=== PATIENT | male | born 1950 | race Caucasian/White ===

== ENCOUNTER → 2020-03-13 17:31 | Outpatient (BNVA) | payer MEDICARE, MEDICAID, SELFPAY | PROVIDERS: Family Provider Internal Medicine; PCP Internal Medicine; Visit Provider Nurse Practitioner Family | DX: R53.83 Other fatigue (principal); M25.50 Pain in unspecified joint; Z12.5 Encounter for screening for malignant neoplasm of prostate; E55.9 Vitamin D deficiency, unspecified; J02.9 Acute pharyngitis, unspecified; R10.32 Left lower quadrant pain | CPT/HCPCS: 80053; 82306; 82607; 84443; 84550; 85025; 85651; 86140; 86618; 86666; 86757; G0103 ==

== ENCOUNTER → 2020-03-26 15:29 | Outpatient (BNVA) | payer MEDICARE, MEDICAID, SELFPAY | PROVIDERS: Family Provider Internal Medicine; PCP Internal Medicine; Visit Provider Nurse Practitioner Family | DX: M25.50 Pain in unspecified joint (principal) | CPT/HCPCS: 86038; 86431 ==

== ENCOUNTER → 2020-05-19 15:58 | Outpatient (BNVA) | payer MEDICARE, MEDICAID, SELFPAY | PROVIDERS: Family Provider Internal Medicine; PCP Internal Medicine; Visit Provider Nurse Practitioner Family | DX: M54.9 Dorsalgia, unspecified (principal); M54.2 Cervicalgia | CPT/HCPCS: 72040; 72072; 72100 ==

== ENCOUNTER 2020-05-26 11:58 | Outpatient (CLI) | payer MEDICARE, MEDICAID, SELFPAY ==
[2020-05-26] MEDS: iohexol 300 mg/mL 50 mL Btl PO (12:50)
--- NOTE | 2020-05-26 13:30 | CT_ITS ---
WS: [id number] CT ABDOMEN PELVIS TECHNIQUE: Contrast-enhanced CT of the abdomen and pelvis with coronal and sagittal reformatted image s. CLINICAL INFORMATION: abdominal pain COMPARISON: CT 2018 and 2017 DLP: 1170.[address] scans at [facility] use at least one of these dose optimization techniques: automat ed exposure control; mA and/or kV adjustment per patient size (includes targeted exams where dose is matched to clinical indication); or iterative reconstruction. FINDINGS: Mild diffuse fatty infiltration liver. Normal portal vein and splenic vein. Normal GE junction. Fatty atrophy of the pancreas. Normal spleen. Adrenal glands are normal. Normal renal parenchymal enhancem ent. No hydronephrosis. Lung bases are well aerated. Sigmoid diverticulosis. No evidence of acute diverticulitis. No evidence of small or large bowel obst ruction. Fat-containing left inguinal hernia. Small fat-containing umbilical hernia. Normal visualize d lumbar spine. CT/CT abdomen pelvis w con* [id number] IMPRESSION: 1. Mild diffuse fatty infiltration of the liver. 2. Normal visualized gallbladder. 3. No evidence of small or large bowel obstruction. 4. Sigmoid diverticulosis. No evidence of acute radiculitis. 5. Normal caliber abdominal aorta. 6. Fat-containing left inguinal hernia and tiny fat-containing umbilical herni a.
[2020-05-26 13:35] LABS: Blood Urea Nitrogen 14 mg/dL (8-23)
[2020-05-26] MEDS: iohexol 300 mg/mL 100 mL Btl IV (13:43)
== END 2020-05-26 11:59 | disposition home or self-care (01) ==
PROVIDERS: Family Provider Family Medicine; PCP Family Medicine; Visit Provider Surgery
DX: R10.9 Unspecified abdominal pain (principal); K76.0 Fatty (change of) liver, not elsewhere classified; K57.30 Diverticulosis of large intestine without perforation or abscess without bleeding; K40.90 Unilateral inguinal hernia, without obstruction or gangrene, not specified as recurrent; K42.9 Umbilical hernia without obstruction or gangrene
CPT/HCPCS: 74177; 82565; 84520; Q9967

== ENCOUNTER 2020-06-11 15:34 | Outpatient (CLI) | payer MEDICARE, MEDICAID, SELFPAY ==
--- NOTE | 2020-06-11 16:00 | MR_ITS ---
WS: [id number] EXAM: MR cervical spin wo con* [id number] DATE OF EXAMINATION: 06/11/2020, 1703 hours COMPARISON: CT of the cervical spine from 06/29/2018. HISTORY: 70 years old with pain and the head and neck for the last year. Fell off a ladder. Lump between the s houlder blades. TECHNIQUE: Sagittal T1, T2 and T2 inversion recovery; axial T2, T2 gradient and fiesta FINDINGS: Skull base is normal in appearance. Cervical and upper thoracic vertebral bodies are of normal height and marrow signal characteristics. Predens space and prevertebral soft tissue plane are normal. Cerv ical and upper thoracic cord of normal caliber and signal characteristics as visualized. Disc desicca tion changes are demonstrated. No findings of protrusion, canal or neural foraminal compromise are se en. There are minimal degenerative spondylosis changes C5-6 C6-7 and C7-T1 levels. Appears be some ch ronic compression deformity of C7 similar to the prior examination. Question if this is related to ol d trauma versus congenital. Paraspinal soft tissues are unremarkable. No abnormal inflammatory change s are seen on inversion recovery sequencing. A marker was placed dorsally at the site of palpable abn ormality which correlates with an underlying benign-appearing subcutaneous lipoma. Estimated at 4.2 x 1.4 cm in the cranial and anterior posterior dimensions. Yces-xz-jutp dimension was not able to be m easured secondary to this area was not included on the axial dataset. Incidental findings of a jules ioma within the T1 vertebral body noted which is otherwise benign in appearance. MR/MR cervical spin wo con* [id number] IMPRESSION: Minimal degenerative changes are seen in the spine. No protrusion, canal or adelia ral foraminal stenosis. Operable abnormality in the dorsal back correlates with a subcutaneous lipoma.
== END 2020-06-11 15:35 | disposition home or self-care (01) ==
LOC: RADSHAW 15:39
PROVIDERS: PCP Family Medicine; Visit Provider Nurse Practitioner Family
DX: M54.2 Cervicalgia (principal); R51 Headache
CPT/HCPCS: 72141

== ENCOUNTER → 2020-07-09 16:15 | Outpatient (BNVA) | payer MEDICARE, MEDICAID, SELFPAY | PROVIDERS: PCP Family Medicine; Visit Provider Surgery | DX: Z11.59 Encounter for screening for other viral diseases (principal); D17.9 Benign lipomatous neoplasm, unspecified | CPT/HCPCS: 87635 ==

== ENCOUNTER 2020-07-14 07:10 | Day surgery (SDC) | payer MEDICARE, MEDICAID, SELFPAY ==
[2020-07-11 13:42] VITALS: BMI 25.0
[2020-07-14] VITALS (10 sets, daily range): BP systolic 115–158; BP diastolic 64–112; PULSE 54–77; RESP 15–22; TEMP 36.3–36.7; O2SAT 95–100
[2020-07-14] MEDS: sodium chloride 0.9% 1,000 ML 30 ML IV (07:36)
--- NOTE | 2020-07-14 07:43 | P.ANESASSM_ITS ---
Pre-Anesthetic Assessment Pre-Anesthetic Assessment: Height/Weight: Height 1.83 m Weight 83.915 kg Temp Pulse Resp BP Pulse Ox 97.3 F L 71 18 129/98 98 07/14/20 07:22 07/14/20 07:22 07/14/20 07:22 07/14/20 07:33 07/14/20 07:22 Preop Diagnosis: Back Mass Proposed Procedure: Operation Date: 07/14/20 09:00 Proposed Procedures p Excision Mass Upper back 60086 D17.9(Not Applicable) - Blaine Barron MD Familial anesthetic complications: none Was Beta Jose Raul taken within 24 hours: N/A Last intake: Intake Last Liquid Date 07/13/20 Last Liquid Time 21:00 Last Solid Date 07/13/20 Last Solid Time 14:00 Social: Social History: No alcohol and No tobacco Exam: Pre-Anes Outpt Exam: alert, oriented x 3, clear to auscultation bilaterally and regular rate & rhythm Airway: Cervical ROM: WNL MP: 1 Dentition: Chipped CV/HEM: CV/HEM: HTN Metabolic: Comments: [place] fever Musc/skel: Musc/skel: RA Anesthetic Plan: ASA status: 2 Anesthesia: MAC Risk of > 500 ml blood loss (7ml/kg in children): No Meds/Allergies Current Medications: Current Medications Generic Name Dose Route Start Last Admin Trade Name Freq PRN Reason Stop Dose Admin Sodium Chloride 1,000 mls @ 30 ml s/hr 07/14/20 07:15 07/14/20 07:36 Sodium Chloride 0.9% IV 07/15/20 07:14 30 mls/hr .Q24H THIERRY Administration PFSH Anesthesia PFSH: Medical History Constipation Hemorrhoids [place] tick fever Surgical History Hx of appendectomy Hx of colonoscopy Hx of exploratory laparotomy Family History Denies family history of Clotting disorder Anesthesia complication Bleeding disorder Social History Smoking and tobacco status: never smoked Second hand smoke exposure: No Lives independently: Yes Household members: significant other Marital status: Life Partner Data Anesthesia Cardiac Studies: No Data to Display
--- NOTE | 2020-07-14 08:29 | W.PM.OPSUD ---
Surgery/Procedure H&P Update DATE OF PROCEDURE: July 14, 2020 DATE H&P PERFORMED: 07/09/20 H&P UPDATE INFORMATION: I have reviewed H&P completed within last 30 days, I have examined patient prior to procedure and No changes to prior documentation PREOP DIAGNOSIS: Back Mass PRIMARY INDICATION FOR PROCEDURE: The same PLANNED PROCEDURE: Operation Date: 07/14/20 09:00 Proposed Procedures p Excision Mass Upper back [id number] D17.9(Not Applicable) - Blaine Barron MD
[2020-07-14] MEDS: lidocaine 2% INJ 20 mL INJECTION (09:08)
--- NOTE | 2020-07-14 09:13 | P.OP_ITS ---
Operative Report Date of procedure: July 14, 2020 Pre-op Diagnosis: Back Mass Post-op diagnosis: other (Lipoma of the back) Procedure Done: Excision of upper back mass Specimens removed/disposition: Back mass oriented short sutures superior and long sutures marked right lateral Measurements about 10 x 5 x 5 [address] depth all the way to the fascia Surgeon: Blaine Barron Plastics Design Engineer: Surgical francisco Jessica Circulating nurse Cherry Anesthesia: General (LMA supervisor roller printing Kateryna) Estimated blood loss (mL): 5 Condition: stable Disposition: same day Brief History: This is a pleasant 70 years old gentleman referred to my practice with symptomatic upper back mass. Likely lipoma. Indications, risks, benefits and alternatives all discussed with the patient and he did agree to proceed Informed consent per chart Procedure: After identifying the patient holding area, upper back mass was marked before the procedure by myself, patient was then taken to the operative suite,LMA was inserted by the anesthesia provider then the patient was placed in left lateral position, and all pressure points were padded including a left ax r oll by myself as well as the team.IV antibiotics were given per protocol,prep and drape of the upper back was done under the usual sterile technique. Time-out was done verifying the patient's name/date of /planned procedure and destination after the procedure, all were in agreement. After palpation of the mass. Infiltration of lidocaine 2%. I did an transverse oblique incision on top of the mass. I was able to dissect using sharp dissection and the whole mass was excised from the surrounding tissues, the mass represents a lipoma going all the way to the fascial layer.The specimen was then marked short sutures superior and long sutures marked lateral and passed to the circulating nurse for permanent pathology Thorough irrigation of the cavity was done and hemostasis, I elected to place a drain 10 mm Malachi-Emery and had separate stab incision towards the right lower inferior and the drain was secured to the skin by 2-0 nylon. Followed by deep dermal closure by 2-0 Vicryl, then 4-0 Monocryl for skin closure Lidocaine 2% was injected at the site of the incision, followed by surgical glue and pressure dressing Patient tolerated the procedure well, count of instruments, needles and sponges were completed at the end of the procedure. And then patient was taken to the recovery area in stable condition. I was present for the whole entire procedure
--- NOTE | 2020-07-14 09:31 | SUR.PHASEI ---
0980 PATIENT TO PACU FROM OR. RR EVEN AND UNLABORED. SPO2 100% ON SIMPLE MASK AT 5L. PATIENT RESTING COMFORTABLE ON GURNEY. DRESSING TO MID BACK, CDI WITH SOHA DRAIN IN PLACE, NO DRAINAGE NOTED IN DRAIN.
--- NOTE | 2020-07-14 09:55 | SUR.PHASEI ---
0950 PATIENT TO OPS. DRESSING TO MID BACK, CDI WITH SOHA DRAIN IN PLACE.
[2020-07-14] MEDS: HYDROcodone-acetaminophen 5-325 mg Tablet 1 TAB PO (10:08)
--- NOTE | 2020-07-14 10:30 | ANE.PACU2 ---
Inpatient post-anesthesia follow up: Airway intact: Yes Vital signs: Temperature 98 F Pulse Rate 77 Respiratory Rate 18 Blood Pressure 142/75 Pulse Oximetry 97 Oxygen Delivery Me thod Room Air Oxygen Flow Rate 5 Fraction of Inspir ed Oxygen Hydration adequate: Yes Nausea and vomiting: No Pain level: 1 Mental status: Baseline
== END 2020-07-14 10:40 | disposition home or self-care (01) ==
PROVIDERS: PCP Family Medicine; Visit Provider Surgery
PROC: (CPT 11406; principal; 2020-07-14 08:50)
DX: D17.1 Benign lipomatous neoplasm of skin and subcutaneous tissue of trunk (principal); I10 Essential (primary) hypertension; M06.9 Rheumatoid arthritis, unspecified
CPT/HCPCS: 11406; 12034; 12345; 88309; J0131; J0690; J1100; J2704; J3010; J7030

== ENCOUNTER → 2022-02-04 15:43 | Outpatient (BNVA) | payer MEDICARE, MEDICAID, SELFPAY | PROVIDERS: PCP Nurse Practitioner Family; Visit Provider Nurse Practitioner Family | DX: M79.662 Pain in left lower leg (principal); M79.89 Other specified soft tissue disorders; I10 Essential (primary) hypertension; I83.899 Varicose veins of unspecified lower extremity with other complications; I87.2 Venous insufficiency (chronic) (peripheral) | CPT/HCPCS: 80053; 80061; 84443; 85025 ==

== ENCOUNTER 2022-02-15 07:33 | Outpatient (CLI) | payer MEDICARE, MEDICAID, SELFPAY ==
--- NOTE | 2022-02-15 08:30 | USCV_ITS ---
Nam Padilla Age: 71 Gender: M : 1950 Exam Date: 02/15/2022 07:56 Ordering Phys: Estela Hinojosa-Jered Technologist: KENISHA Exam Location: [facility] [place] Indication: Left leg pain HISTORY: Lower extremity pain. PROCEDURES: Venous duplex imaging was performed in only the left lower extremity. The following venous structures were evaluated: common femoral vein, profunda vein, proximal portion of the greater saphenous vein, superficial femoral vein, and the popliteal vein. In addition, the posterior tibial and peroneal trunk were evaluated. FINDINGS: Normal 2-D Doppler and augmentation and compressibility throughout the lower extremity venous structures. Additional imaging through the proximal calf veins also reveals no thrombus. Limited evaluation of the greater saphenous vein is patent with no thrombus. Varicosities visualized at left medial ankle and dorsal surface of left foot in patient directed area of pain. CONCLUSIONS No DVT left lower extremity. Varicosities noted in area of pain. Dr. Rylie Mora DO (Electronically Signed) Final Date: 15 Feb 2022 08:24 S
== END 2022-02-15 07:34 | disposition home or self-care (01) ==
LOC: RAD 07:37
PROVIDERS: PCP Nurse Practitioner Family; Visit Provider Nurse Practitioner Family
DX: M79.662 Pain in left lower leg (principal); M79.89 Other specified soft tissue disorders; I83.92 Asymptomatic varicose veins of left lower extremity
CPT/HCPCS: 93971

== ENCOUNTER → 2022-02-18 12:58 | Outpatient (BNVA) | payer MEDICARE, MEDICAID, SELFPAY | PROVIDERS: PCP Nurse Practitioner Family; Visit Provider Thoracic Surgery (Cardiothoracic Vascular Surgery) | DX: I83.93 Asymptomatic varicose veins of bilateral lower extremities (principal) | CPT/HCPCS: 93970; 99203 ==

== ENCOUNTER 2022-02-18 14:03 | Outpatient (CLI) | payer MEDICARE, MEDICAID, SELFPAY ==
--- NOTE | 2022-02-18 | USCV_ITS ---
Nam Padilla Age: 71 Gender: M : 1950 Exam Date: 02/18/2022 14:33 Ordering Phys: Estela Hinojosa CAR HIKER-Jered Technologist: Jaime Plunkett Exam Location: [facility] [place] Indication: HISTORY: PROCEDURES: Bilateral duplex Venous Insufficiency study of the Deep and Superficial systems was carried out according to normal protocol with the patient in supine positon for deep system and dependent position for the superficial system. FINDINGS: All deep veins demonstrated compressibility without evidence of intraluminal thrombus or increased echogenicity. Spectral analysis of Doppler signals demonstrates normal response to compression maneuvers indicating patency without obstruction. Reflux determinations were made with the patient in the dependent position, the weight being on the contralateral leg. THERE IS SIGNIFICANT GREAT SAPH REFLUX IN BOTH LEGS. THE RIGHT LEG IS A GOOD CANIDATE FOR ABLATION THE LT LEG WOULD BE MUCH MORE DIFFICULT TO CLOSE TO SURFACE AND TORTUOUS VESSELS CONCLUSIONS 1. No evidence of DVT in the above-mentioned identifiable veins. 2. Significant venous reflux of greater than 500 ms were noted at the proximal, mid and below-knee segments of the greater saphenous vein on the right side. These venous segments were measuring anywhere from 0.4- 0.58 cm in diameter. The mid and the below-knee greater saphenous venous segments were found to be less than 1 cm deep from the surface. 3. On the left side significant venous reflux of greater than 500 ms were noted at the mid, distal and below-knee segments of the greater saphenous vein. These venous segments were found to be very tortuous and less than 1 cm deep from the surface. The venous segments were measuring anywhere from 0.39 to 0[address] Aleisha Aquino MD [facility] (Electronically Signed) Final Date: 19 Feb 2022 16:24 S
== END 2022-02-18 14:04 | disposition home or self-care (01) ==
LOC: RAD 14:05
PROVIDERS: PCP Nurse Practitioner Family; Visit Provider Nurse Practitioner Family
DX: I83.91 Asymptomatic varicose veins of right lower extremity (principal)
CPT/HCPCS: 93970

== ENCOUNTER 2022-03-19 08:57 | Outpatient (CLI) | payer MEDICARE, MEDICAID, SELFPAY ==
--- NOTE | 2022-03-19 09:05 | USCV_ITS ---
RandyNam Age: 71 Gender: M : 1950 Exam Date: 03/19/2022 09:20 Ordering Phys: Hubert Presley MD (Andy) ([email or web address]) Technologist: Exam Location: [facility] [place] Indication: pad Risk Factors: Previous Vascular Surgery: RIGHT LEFT BP: 150.0 / 87.00 BP: 155.0/ 88.00 0 0 Waveform Velocity (cm/s) Velocity (cm/s) Waveform Triphasic 77.4 Iliac Prox 104.9 Biphasic Triphasic 72.3 Iliac Mid 73.2 Biphasic Triphasic 62.0 Iliac Distal 85.2 Biphasic Biphasic 70.3 INSTRUCTOR LOOPING 66.6 Biphasic Biphasic 74.2 SFA Prox 47.6 Biphasic Biphasic 71.6 SFA Mid 48.3 Biphasic Biphasic 61.3 SFA Dist 54.7 Biphasic Biphasic 42.0 POP 38.0 Biphasic Biphasic 73.0 LOCAL INTERMODAL TRUCK DRIVER 73.3 Biphasic Biphasic 21.3 DPA 76.7 Biphasic 1.1 MIMI 1.1 FINDINGS Minimal plaques in the iliac and femoral arteries bilaterally. Normal Doppler flow velocities. MIMI of 1.1 bilaterally CONCLUSIONS Normal resting ABIs bilaterally. Minimal plaque in the femoral and iliac arteries bilaterally No significant arterial obstruction, based on the above findings Dr Aleisha Aquino MD [facility] (Electronically Signed) Final Date: 19 March 2022 15:23 S
== END 2022-03-19 08:58 | disposition home or self-care (01) ==
LOC: RAD 08:58
PROVIDERS: PCP Nurse Practitioner Family; Visit Provider Thoracic Surgery (Cardiothoracic Vascular Surgery)
DX: I83.90 Asymptomatic varicose veins of unspecified lower extremity (principal); I73.9 Peripheral vascular disease, unspecified
CPT/HCPCS: 93925

== ENCOUNTER 2022-05-11 06:01 | Day surgery (SDC) | payer MEDICARE, MEDICAID, SELFPAY ==
--- NOTE | 2022-05-11 06:00 | USCV_ITS ---
Randy Nam Age: 72 Gender: M : 1950 Exam Date: 05/11/2022 06:51 Ordering Phys: Hubert Presley MD (Andy) ([email or web address]) Technologist: Jaime Plunkett Exam Location: [facility] [place] Indication: Venous Ablation FINDINGS: Doppler examination was performed at the saphenofemoral junction. The saphenofemoral junction was found to be patent. The inferior epigastric vein also was found to be patent proximally. CONCLUSIONS Patent saphenofemoral junction with no evidence of thrombosis. Patent inferior epigastric vein Dr Aleisha Aquino MD [facility] (Electronically Signed) Final Date: 11 May 2022 20:29 S
--- NOTE | 2022-05-11 07:47 | P.HP_ITS ---
Providers/Chief Complaint Admitting Physician: Dr. Presley Primary Care Provider: DIAZ Gomez Chief Complaint: symptomatic delfina veins I83.90 History of Present Illness Nam Padilla is a 72 year old male who was referred to our service because of symptomatic bilateral lower extremity varicose veins with increasing lower extremity pain with prolonged standing. He has documented reflux bilaterally. Saphenous vein is relatively superficial below the knee on both sides but he has substantial reflux of over 500 ms in both saphenous veins greater systems right and left. No history for trauma or DVT arterial study was unremarkable. Venous duplex study of February 18 revealed: 1.? No evidence of DVT in the above-mentioned identifiable veins. ?2.? Significant venous reflux of greater than 500 ms were noted at the ?proximal, mid and below-knee segments of the greater saphenous vein on ?the right side.? These venous segments were measuring anywhere from ?0.4- 0.58 cm in diameter.? The mid and the below-knee greater saphenous ?venous segments were found to be less than 1 cm deep from the surface. ?3.? On the left side significant venous reflux of greater than 500 ms ?were noted at the mid, distal and below-knee segments of the greater ?saphenous vein.? These venous segments were found to be very tortuous ?and less than 1 cm deep from the surface.? The venous segments were ?measuring anywhere from 0.39 to 0.91 cm in diameter He has shown intermittent relief with compression. Venous ablation has been recommended of the greater saphenous vein in an attempt to improve his symptoms. By exam, CEAP classification C4 a Review of Systems Const: Denies: fever(s), chills or change in weight Eyes: Denies: change in vision ENMT: Denies: throat pain Card: Reports: swelling of feet/ankles GI: Denies: abdominal pain, nausea, vomiting or hematemesis Musc: Reports: neck pain, back pain, joint pain and joint stiffness Skin/Breast: Reports: other (Lower extremity skin coloration changes consistent with venous insufficienc) Neuro: Reports: headache(s) Psych: Denies: anxiety or depression Medications/Allergies Home Medications Medication Instructions Recorded Confirmed Last Taken Type amlodipine 5 mg tablet 5 mg PO DAILY #30 tabs 02/04/22 02/18/22 Unknown Rx ibuprofen 800 mg tablet 800 mg PO TID PRN pain #21 tabs 02/04/22 02/18/22 Unknown Rx Allergies Allergy/AdvReac Type Severity Reaction Status Date / Time citalopram [From Celexa] Allergy ADR-Dry Verified 02/18/22 13:13 Mucus Membranes PFSH Acute PFSH: Medical History (Updated 05/11/22 @ 07:53 by Hubert Presley MD) Constipation Hemorrhoids Lipoma [place] tick fever Surgical History Hx of appendectomy Hx of colonoscopy Hx of exploratory laparotomy Family History Denies family history of Clotting disorder Anesthesia complication Bleeding disorder Social History Smoking and tobacco status: never smoked Second hand smoke exposure: No Lives independently: Yes Household members: significant other Marital status: Life Partner Physical Exam HENMT: COMMON NORMALS: normocephalic, atraumatic, hearing grossly normal bilaterally, external ears normal and Normal external nose present Eye: COMMON NORMALS: EOMs intact bilaterally and conjunctivae normal Neck/C-Spine: COMMON NORMALS: no lymphadenopathy; negative for full ROM Chest: COMMONS NORMALS: normal palpation of entire chest wall Resp: COMMON NORMALS: normal respiratory effort and clear to auscultation bilaterally Cardio: COMMON NORMALS: regular rate, regular rhythm, No gallops present (Cardio), No murmurs present (Cardio) and No rub (Cardio) PERIPHERAL PULSES: radial pulses present positive bilateral 2+, popliteal pulses present positive bilateral 2+ and dorsalis pedis present positive bilateral 2+ GI: COMMON NORMALS: Normal to inspection, nondistended, normoactive bowel sounds present Extremity: OTHER: No active ulcerations. Skin pigmentation changes consistent with venous insufficiency. Prominent varicosities easily palpable. Negative Homans' sign. CEAP classification C4 a Neuro: COMMON NORMALS: no focal motor deficits, no sensory deficits noted and gait normal A&P Assessment and plan (1) Venous insufficiency of lower extremity: Bilateral symptomatic venous insufficiency with documented venous reflux of greater than 500 ms. Greater saphenous vein on each side is less than 1 cm from the skin level below the knees but appears to be deep above this level. He has low symptomatic on the left side. We recommended staged consideration for RF catheter ablation, initially beginning on the left lower extremity. Details of risk of procedure were carefully and frankly discussed including failure to benefit, DVT, infection, continued pain, injury to the skin, and need for further procedures. All questions have been answered. Appropriate consents have been reviewed and signed. Status: Acute Attestations Medical Necessity Statement*: Highly symptomatic bilateral lower extremity venous insufficiency with chronic skin changes with documented relief with compression. Documented venous reflux of over 500 ms to the greater saphenous vein systems bilaterally. 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
--- NOTE | 2022-05-11 09:00 | PM.OP ---
Operative Report Date of procedure: May 11, 2022 Pre-op diagnosis: Preop Diagnosis symptomatic varicose veins lower extremities with documented venous insufficiency and reflux Post-op diagnosis: same Procedure done: Left greater saphenous vein radiofrequency catheter ablation Pathology: none sent Surgeon: Hubert Presley Anesthesia: Local Estimated blood loss: 10 Complications: None Condition: stable Disposition: same day Brief History: Mr. Padilla is a 72-year-old gentleman with documented bilateral lower extremity greater saphenous vein venous reflux of over 500 ms. He has discomfort with prolonged standing and varicose veins bilaterally. No history for DVT or lower extremity trauma. He does have symptomatic temporary relief with compression therapy. RF catheter ablation of the greater saphenous veins have been recommended to improve his symptoms. He is more symptomatic on the left than the right, therefore we elected to proceed on that side. Procedure: The insufficient left greater saphenous vein was verified by ultrasound and diagrammed on the overlying skin. The varicose tributary veins and suitable access sites were identified and mapped. The affected left lower extremity was prepped and draped in the usual sterile fashion. The patient was placed in reverse Trendelenburg position. Tumescent was instilled in the skin overlying the access site for local anesthesia. The vein was accessed in the proximal left calf using ultrasound guidance and the Seldinger technique, a guidewire was introduced through the needle, which was then exchanged over the guidewire for a 7F sheath. The RF catheter was placed on the sterile field, flushed and wiped down, prepared, and connected by a sterile cable. The patient was placed in Trendelenburg position. After RF catheter position was verified by ultrasound, tumescent anesthesia was infiltrated, under ultrasound guidance, precisely into the perivenous compartment along the entire length of vein. After the RF catheter position was again confirmed with ultrasound imaging, and under direct external compression along the length of the heating element, RF energy was applied. The vein was segmentally ablated until the treatment length is completed. Device temperature was maintained at 120 +/- degrees C with an initial power level of 40W dropping to below 20W for each treatment. Total vein length treated 42 cm. Vein diameter 0.5 cm. Total cycles of RF 16. Time 5 minutes and 20 seconds. There were numerous draining tributaries, particularly in the proximal and mid left thigh requiring cycle repeat to obtain appropriate wattage drop. Repeat ultrasound of the left greater saphenous vein was performed, confirming successful treatment. The catheter and sheath were withdrawn and hemostasis established with direct pressure. After assuring hemostasis, the skin incision over the saphenous vein was closed with a bandage and graduated compression stocking(s) was applied from the level of the foot to the most proximal length of the thigh.
[2022-05-11 09:15] VITALS: BP 157/97; PULSE 58; RESP 18; O2SAT 95
[2022-05-11 09:30] VITALS: BP 157/97; PULSE 58; RESP 18; O2SAT 95
== END 2022-05-11 09:50 | disposition home or self-care (01) ==
PROVIDERS: PCP Nurse Practitioner Family; Visit Provider Thoracic Surgery (Cardiothoracic Vascular Surgery)
DX: I83.892 Varicose veins of left lower extremity with other complications (principal)
CPT/HCPCS: 36475; C1769; C1888; C1894; J7040

== ENCOUNTER 2022-05-19 10:55 | Outpatient (CLI) | payer MEDICARE, MEDICAID, SELFPAY ==
--- NOTE | 2022-05-19 11:15 | USCV_ITS ---
Nam Padilla Age: 72 Gender: M : 1950 Exam Date: 05/19/2022 11:09 Ordering Phys: Hubert Presley MD (Andy) ([email or web address]) Technologist: Exam Location: [facility] [place] Indication: post lt gsaph ablation PROCEDURES: Venous duplex imaging was performed in only the left lower extremity. FINDINGS: no dvt. The lt epigastic vein is open and flowing in the reminate gspaph. The lt gsaph is occluded below the the epigastic juntion. exam is within normal limits. CONCLUSIONS 1. Patent saphenofemoral junction 2. Patent inferior epigastric vein 3. Rest of the greater saphenous vein was found to be occluded Dr Aleisha Aquino MD [facility] (Electronically Signed) Final Date: 19 May 2022 23:15 S
== END 2022-05-19 10:56 | disposition home or self-care (01) ==
LOC: RAD 10:56
PROVIDERS: PCP Nurse Practitioner Family; Visit Provider Thoracic Surgery (Cardiothoracic Vascular Surgery)
DX: Z09 Encounter for follow-up examination after completed treatment for conditions other than malignant neoplasm (principal)
CPT/HCPCS: 93971

== ENCOUNTER → 2022-05-27 14:22 | Outpatient (BNVA) | payer MEDICARE, MEDICAID, SELFPAY | PROVIDERS: PCP Nurse Practitioner Family; Visit Provider Thoracic Surgery (Cardiothoracic Vascular Surgery) | DX: I83.90 Asymptomatic varicose veins of unspecified lower extremity (principal) | CPT/HCPCS: 99024; 99212 ==

== ENCOUNTER → 2022-07-22 10:14 | Outpatient (BNVA) | payer MEDICARE, MEDICAID, SELFPAY | PROVIDERS: PCP Nurse Practitioner Family; Visit Provider Thoracic Surgery (Cardiothoracic Vascular Surgery) | DX: Z98.890 Other specified postprocedural states (principal) | CPT/HCPCS: 99024 ==

== ENCOUNTER → 2022-11-16 10:06 | Outpatient (BNVA) | payer MEDICARE, MEDICAID, SELFPAY | PROVIDERS: PCP Nurse Practitioner Family; Visit Provider Nurse Practitioner Family | DX: K21.9 Gastro-esophageal reflux disease without esophagitis (principal); I10 Essential (primary) hypertension; Z12.5 Encounter for screening for malignant neoplasm of prostate | CPT/HCPCS: 80053; 80061; 82607; 84443; 85025; G0103 ==

== ENCOUNTER 2023-07-08 18:21 | Emergency (ER) | payer MEDICARE, MEDICAID, SELFPAY ==
[2023-07-08 18:26] VITALS: BP 182/102; PULSE 80; RESP 17; TEMP 36.8; O2SAT 96; BMI 26.4
[2023-07-08 18:30] VITALS: BP 203/104
--- NOTE | 2023-07-08 18:47 | XRR_ITS ---
PROCEDURE INFORMATION: Exam: XR Thoracic Spine Exam date and time: 07/08/2023 6:54 PM Age: 73 years old Clinical indication: Pain in thoracic spine; Additional info: Fall TECHNIQUE: Imaging protocol: Radiologic exam of the thoracic spine. Views: 3 views. COMPARISON: MR cervical spin wo con* [id number] 06/11/2020 4:50 PM FINDINGS: Bones/joints: No acute fracture. Normal alignment. Soft tissues: Unremarkable. XR/XR thoracic spine 3V* [id number] IMPRESSION: No acute findings.
--- NOTE | 2023-07-08 18:47 | XRR_ITS ---
PROCEDURE INFORMATION: Exam: XR Lumbosacral Spine Exam date and time: 07/08/2023 6:59 PM Age: 73 years old Clinical indication: Pain and injury or trauma; Fall; Other: Unknown; Low back pain TECHNIQUE: Imaging protocol: Radiologic exam of the lumbosacral spine. Views: 2 or 3 views. COMPARISON: CR XR lumbar spine 2-3V* [id number] 05/19/2020 4:07 PM FINDINGS: Bones/joints: No acute fracture. Normal alignment. Soft tissues: Unremarkable. XR/XR lumbar spine 2-3V* [id number] IMPRESSION: No acute findings.
--- NOTE | 2023-07-08 18:49 | W.ED.BACK ---
HPI - Back Pain/Injury General: Chief Complaint: Back Pain/Injury Stated Complaint: fell, hurt back Time Seen by Provider: 07/08/23 18:45 Source: patient Mode of arrival: ambulatory Limitations: no limitations History of Present Illness: 73-year-old male states he had fell on Tuesday. He states he fell backwards landed on a joist and hit his back. He has pain over his left lower lumbar region along with left thoracic region states the pain is sharp in nature worse with movement improved with rest denies any blood in his urine denies he is head denies any neck pain. Associated symptoms: Deny abdominal pain, chills, dysuria, fever(s), nausea or vomiting Review of Systems Const: Denies: fever(s) or chills ENMT: Denies: throat pain or dental pain Card: Denies: chest pain Resp: Denies: dyspnea GI: Denies: abdominal pain, nausea, vomiting or diarrhea : Denies: dysuria Musc: Reports: back pain; Denies: neck pain Skin/Breast: Denies: rash Neuro: Denies: headache(s) PFSH ED PFSH: Medical History (Updated 07/08/23 @ 20:09 by Mona Garcia MD) Constipation Hemorrhoids [place]oma [place] tick fever Surgical History Hx of appendectomy Hx of colonoscopy Hx of exploratory laparotomy Family History Denies family history of Clotting disorder Anesthesia complication Bleeding disorder Social History Smoking and tobacco/nicotine status: never used tobacco/nicotine Second hand smoke exposure: No Lives independently: Yes Household members: significant other Marital status: Life Partner Physical Exam Const: COMMON NORMALS: no acute distress, patient oriented x3 and healthy appearing HENMT: COMMON NORMALS: normocephalic and atraumatic HEAD & SCALP: normocephalic and atraumatic Eye: COMMON NORMALS: conjunctivae normal CONJUNCTIVA: Yes conjunctivae normal Neck/C-Spine: COMMON NORMALS: full ROM and supple Chest: COMMONS NORMALS: normal inspection of the chest Resp: COMMON NORMALS: normal respiratory effort Cardio: COMMON NORMALS: regular rate, regular rhythm and No murmurs present (Cardio) RATE: regular rate RHYTHM: regular rhythm GI: COMMON NORMALS: Normal to inspection, nondistended, normoactive bowel sounds present, Soft to palpation, non-tender and no masses PALPATION: Yes Soft to palpation Back/Pelvis: OTHER: Tenderness to left lower lumbar lung some tenderness to left thoracic region no midline tenderness noted. Extremity: COMMON NORMALS: normal to inspection and full ROM Neuro: COMMON NORMALS: patient oriented x3, moves all extremities and no focal motor deficits Psych: COMMON NORMALS: mental status grossly normal, Normal thought process present and cooperative THOUGHT PROCESS: Normal thought process present Skin: COMMON NORMALS: no rashes or lesions noted and no wounds GENERAL SKIN EXAM: no rashes or lesions noted Course Vital Signs: Vital signs: Vital Signs Temperature 98.2 F 07/08/23 18:26 Pulse Rate 78 07/08/23 19:12 Respiratory Rate 16 07/08/23 19:12 Blood Pressure 183/111 07/08/23 19:12 Pulse Oximetry 95 07/08/23 19:12 Oxygen Delivery Me thod Room Air 07/08/23 19:12 MDM - Back Pain/Injury Medical Decision Making Patient presents for back pain from a fall likely contusion x-ray here is negative he has no hematuria no signs of kidney injury he is stable for discharge she is to follow-up with PCP and return if worsening. Medical Records I reviewed the patient's medical records. Labs I reviewed the patient's lab results. Radiology Impressions Lumbar Spine X-Ray 07/08/23 18:47 IMPRESSION: No acute findings. Thoracic Spine X-Ray 07/08/23 18:47 IMPRESSION: No acute findings. Laboratory Results Urine Color Yellow (Yellow) 07/08/23 19:45 Urine Appearance Clear (CLEAR) 07/08/23 19:45 Urine pH 5 (5-7) 07/08/23 19:45 Ur Specific [place] 1.025 (1.005-1.030) 07/08/23 19:45 Urine Protein Neg (Negative) 07/08/23 19:45 Urine Glucose (UA) Norm (Normal) 07/08/23 19:45 Urine Ketones 1+ (Negative) H 07/08/23 19:45 Urine Blood Neg (Negative) 07/08/23 19:45 Urine Nitrate Negative (Negative) 07/08/23 19:45 Urine Bilirubin Neg (Negative) 07/08/23 19:45 Urine Urobilinogen Neg mg/dL (Negative) 07/08/23 19:45 Ur Leukocyte Esterase Trace (Negative) H 07/08/23 19:45 Urine RBC Rare /hpf (0-2) 07/08/23 19:45 Urine WBC Rare /hpf (0-5) 07/08/23 19:45 Ur Squamous Epith Cells Rare /hpf (0-5) 07/08/23 19:45 Amorphous Sediment Not Reportable 07/08/23 19:45 Urine Bacteria None /hpf (NONE) 07/08/23 19:45 All radiology interpretation(s) finalized by discharge Discharge Plan Discharge Patient Disposition: Home Clinical Impression: Contusion of lower back, Fall Condition: Stable Prescriptions: New methocarbamol 750 mg tablet 750 mg PO Q6H PRN (Reason: spasms) Qty: 20 0RF Naprosyn 500 mg tablet 500 mg PO BID PRN (Reason: pain) Qty: 20 0RF No Action pantoprazole [Protonix] 40 mg tablet,delayed release (DR/EC) 40 mg PO DAILY Qty: 90 0RF amlodipine 10 mg tablet 10 mg PO DAILY Qty: 90 0RF Discharge Orders: Discharge ED (Routine); Ordered 07/08/23 Ordered By: Mona Garcia Referrals: Radha Fox FNP [Primary Care Provider] - 1-3 days Discharge Diet: Advance as tolerated Discharge Activity: Resume usual activity Patient Instructions: Contusion in Adults (ED), Back Pain (ED) Coding Level of Care Code ED Forging Machine Hand for Mariel York
[2023-07-08] MEDS: HYDROcodone-acetaminophen 5-325 mg Tablet 1 TAB PO (19:11)
[2023-07-08 19:12] VITALS: BP 183/111; PULSE 78; RESP 16; O2SAT 95
[2023-07-08 20:03] LABS: Add Urine Culture? No; Add Urine Microscopic? YES; Bilirubin Urine Neg (Negative); Blood Urine Neg (Negative); Glucose Urine UA Norm (Normal); Ketones Urine 1+ (Negative); Leukocyte Esterase Urine Trace (Negative); Nitrate Urine Negative (Negative); Protein Urine Neg (Negative); RBC Urine RARE /hpf (0-2); Specific Gravity, Urine 1.025 (1.005-1.030); Squamous Epithelial Cell Urine RARE /hpf (0-5); Urine Appearance Clear (CLEAR); Urine Color Yellow (Yellow); Urobilinogen Urine Neg (Negative); WBC Urine RARE /hpf (0-5); pH Urine 5 (5-7)
== END 2023-07-08 20:17 | disposition home or self-care (01) ==
PROVIDERS: Emergency Provider Emergency Medicine; PCP Nurse Practitioner Family
DX: S30.0XXA Contusion of lower back and pelvis, initial encounter (principal); W19.XXXA Unspecified fall, initial encounter
CPT/HCPCS: 72072; 72100; 81001; 99284

== ENCOUNTER 2024-09-02 15:23 | Inpatient (IN) | payer MEDICARE, MEDICAID, SELFPAY ==
[2024-09-02] VITALS (36 sets, daily range): BP systolic 99–184; BP diastolic 71–127; PULSE 69–83; RESP 12–25; TEMP 36.4–36.7; O2SAT 92–100; BMI 27.5
--- NOTE | 2024-09-02 15:24 | XRR_ITS ---
PROCEDURE INFORMATION: Exam: XR Chest Exam date and time: 09/02/2024 3:33 PM Age: 74 years old Clinical indication: Chest pressure; Patient HX: Chest pain; Stemi alert TECHNIQUE: Imaging protocol: Radiologic exam of the chest. Views: 1 view. COMPARISON: CT chest liset w/*[id number] 06/29/2018 6:34 PM FINDINGS: Lungs: Unremarkable. No consolidation. Pleural spaces: Unremarkable. No pleural effusion. No pneumothorax. Heart/Mediastinum: Unremarkable. No cardiomegaly. Bones/joints: Unremarkable. XR/XR chest 1V portable [id number] IMPRESSION: No acute findings.
--- NOTE | 2024-09-02 15:25 | ECG_ITS ---
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1950 Requested By: Mona Garcia Order Number: [id number] Reading MD: PREM OLIVARES Measurements Intervals [place] Rate: 68 P: 34 NV: 188 QRS: 10 QRSD: 100 T: 51 QT: 404 QTc: 431 Interpretive Statements SINUS RHYTHM WITH OCCASIONAL VENTRICULAR PREMATURE COMPLEXES LOW QRS VOLTAGE IN PRECORDIAL LEADS [QRS DEFLECTION < 1.0 mV IN CHEST LEADS] POSSIBLE RIGHT VENTRICULAR CONDUCTION DELAY [RSR (QR) IN V1/V2] SEPTAL MYOCARDIAL INFARCTION , OF INDETERMINATE AGE [40+ ms Q WAVE IN V1/V2] ST ELEVATION, CONSIDER ANTERIOR INJURY [MARKED ST ELEVATION W/O NORMALLY INFLECTED T-WAVE IN V2-V5] ACUTE FL Compared to ECG 06/17/2017 10:47:47 Ventricular premature complex(es) now present Low QRS voltage now present Myocardial infarct finding now present ST (T wave) deviation now present Electronically Signed On 09-03-2024 16:08:11 [facility] by PREM OLIVARES [id number]
[2024-09-02] MEDS: ondansetron 2 mg/ML SDV 2 mL 4 MG IVP (15:35)
[2024-09-02] MEDS: morphine 4 mg/mL SDV 1 mL IVP ×2 (15:35→15:54)
[2024-09-02] MEDS: heparin 5,000 unit/mL INJ 1 mL 4000 UNIT IVP (15:38)
--- NOTE | 2024-09-02 15:39 | P.HP_ITS ---
Providers/Chief Complaint Admitting Physician: Salma Brower MD Primary Care Provider: DIAZ Gomez Chief Complaint: Severe chest pain History of Present Illness Nam Padilla is a 74 year old male past medical history not significant for any major problem not on any medicine apart from pantoprazole which she takes for GERD started having chest pain an hour ago when it does not get better he called 911 twelve-lead EKG was suggestive of anterior lead ST elevation. STEMI pager was activated. I immediately saw the patient in the ER. Patient is in severe chest pain and distress will proceed with emergent left heart cath/PCI if indicated. Patient has been explained all risk-benefit and alternative for the procedure he would like to proceed with it. Patient has been loaded with Plavix aspirin and given heparin IV as per ACS protocol.. Medications/Allergies Home Medications Medication Instructions Recorded Confirmed Last Taken Type amlodipine 10 mg tablet 10 mg PO DAILY #90 tabs 11/16/22 11/16/22 Unknown Rx Allergies Allergy/AdvReac Type Severity Reaction Status Date / Time citalopram [From Celexa] Allergy ADR-Dry Verified 11/16/22 09:07 Mucus Membranes PFSH Acute PFSH: Medical History (Updated 09/02/24 @ 15:42 by Salma Brower MD) [place] tick fever Constipation Hemorrhoids Surgical History Hx of colonoscopy Hx of appendectomy Hx of exploratory laparotomy Family History Denies family history of Clotting disorder Anesthesia complication Bleeding disorder Social History Smoking and tobacco/nicotine status: never used tobacco/nicotine Second hand smoke exposure: No Lives independently: Yes Household members: significant other Marital status: Life Partner Vitals/I&O/Wt Last Vital Signs Resp 20 H 09/02/24 15:35 Weight last 48 hrs Weight 193 lb Physical Exam Const: OTHER: GENERAL: Patient is alert, awake and oriented x3. Moderate to severe distress, appeared to be diaphoretic HEART: Regular S1 and S2. No murmur, rub or gallop. LUNGS: Clear to auscultate bilaterally. CENTRAL NERVOUS SYSTEM: Grossly nonfocal. EXTREMITIES: Lower extremities with out edema bilaterally. A&P Assessment and plan (1) ST elevation (STEMI) myocardial infarction: Twelve-lead EKG is consistent with anterior wall ST elevation FL. Will proceed with emergent left heart cath/PCI if indicated. Further plan will be advised as per progress of the patient. Qualifiers: Involved coronary artery: LAD coronary artery Qualified Code(s): I21.02 - ST elevation (STEMI) myocardial infarction involving left anterior descending coronary artery (2) Hypertension: Patient takes amlodipine will optimize medications to keep blood pressure in optimal range. Qualifiers: Hypertension type: primary hypertension Qualified Code(s): I10 - Essential (primary) hypertension Attestations Medical Necessity Statement*: I am expecting his stay to cross more than 2 midnight. This is an inpatient admission to ICU. Coding Level of Care Code Acute Code for [facility] Fwd Diagnoses ST elevation myocardial infarction involving left anterior descending (LAD) coronary artery I21.02 Involved coronary artery: LAD coronary artery Primary hypertension I10 Hypertension type: primary hypertension
--- NOTE | 2024-09-02 15:40 | PC.PHAR ---
called all three pharmacies listed on his account patient hasnt filled anything in 2 years
[2024-09-02] MEDS: nitroglycerin drip 50 MG/250 ML PREMIX IV (15:41)
--- NOTE | 2024-09-02 15:41 | W.ED.CHESTPA ---
HPI - Chest Pain General: Chief Complaint: Chest Pain Stated Complaint: Severe chest pain Time Seen by Provider: 09/02/24 15:30 History of Present Illness: 74-year-old male presents emergency room with severe crushing chest pain radiating into his back. It started at approximately 2 PM an hour and a half prior to arrival initially on arrival he is mildly diaphoretic shortness of breath clutching at his check triage nurse that his initial EKG shows ST elevation and he was brought directly to the trauma bay on I seen the patient reviewed EKG he has an obvious ST elevation NE. Appropriate medications were ordered. Patient has no history of coronary artery disease he is not diabetic does not use alcohol or tobacco products. Patient denies any other chest pain episodes in the last 1 to 2 weeks Associated symptoms: Deny abdominal pain, dyspnea or fever(s) Related Data Home Medications Medication Instructions Recorded Confirmed No Known Home Medications 09/02/24 09/02/24 Allergies Allergy/AdvReac Type Severity Reaction Status Date / Time citalopram [From Celexa] Allergy ADR-Dry Verified 11/16/22 09:07 Mucus Membranes Review of Systems Const: Denies: fever(s) or chills Card: Reports: chest pain Resp: Denies: dyspnea GI: Denies: abdominal pain : Denies: dysuria, urinary frequency or urinary urgency Musc: Denies: neck pain or back pain Skin/Breast: Denies: rash PFSH ED PFSH: Medical History (Updated 09/02/24 @ 15:46 by Praveen Jacques DO) Lipoma [place] tick fever Constipation Hemorrhoids Surgical History Hx of colonoscopy Hx of appendectomy Hx of exploratory laparotomy Family History Denies family history of Clotting disorder Anesthesia complication Bleeding disorder Social History Smoking and tobacco/nicotine status: never used tobacco/nicotine Second hand smoke exposure: No Lives independently: Yes Household members: significant other Marital status: Life Partner Physical Exam Const: GENERAL APPEARANCE: cooperative ORIENTATION/CONSCIOUSNESS: Yes awake, Yes oriented to person, Yes oriented to place and Yes oriented to time HENMT: COMMON NORMALS: normocephalic, atraumatic and hearing grossly normal bilaterally HEAD & SCALP: normocephalic and atraumatic Resp: COMMON NORMALS: normal respiratory effort, No retractions, No use of accessory muscles and clear to auscultation bilaterally AUSCULTATION: clear to auscultation bilaterally Cardio: COMMON NORMALS: regular rate, regular rhythm and No murmurs present (Cardio) RATE: regular rate RHYTHM: regular rhythm GI: COMMON NORMALS: Soft to palpation and No hepatosplenomegaly present AUSCULTATION: Yes normoactive bowel sounds PALPATION: Yes Soft to palpation, No Tenderness to palpation present (GI), No Guarding due to palpation present (GI) and Yes No hepatosplenomegaly present Extremity: COMMON NORMALS: normal to inspection, capillary refill normal, no clubbing, cyanosis or edema, no calf tenderness and no pedal edema Neuro: SENSORIUM/ORIENTATION: Yes oriented to person, Yes oriented to place and Yes oriented to time Skin: COMMON NORMALS: no rashes or lesions noted GENERAL SKIN EXAM: no rashes or lesions noted Course Vital Signs: Vital signs: Vital Signs Temperature 98.1 F 09/02/24 15:42 Pulse Rate 75 09/02/24 15:42 Respiratory Rate 21 H 09/02/24 15:54 Blood Pressure 184/124 09/02/24 15:42 Pulse Oximetry 98 09/02/24 15:54 Oxygen Delivery Me thod Room Air 09/02/24 15:42 MDM - Chest Pain Medical Decision Making Shortly after patient arrived in the department Dr. Brower arrived. He is seen the patient evaluated EKG he concurs as a STEMI and will take the patient directly to the Sewing Department Supervisor. Patient was given morphine total of 8 mg Zofran 4 mg he did vomit a couple times additionally he was given heparin started on nitro which was titrated up. Pain had improved but not resolved by the time he left to the Sewing Department Supervisor. Have discussed with the family as well. Medical Records I reviewed the patient's medical records. Lab Data I reviewed the patient's lab results. 09/02/24 15:38 09/02/24 15:38 Laboratory Results WBC 6.89 10^3/uL (3.29-11.43) 09/02/24 15:38 RBC 4.97 10^6/uL (3.85-5.65) 09/02/24 15:38 Hgb 15.60 g/dL (11.27-16.99) 09/02/24 15:38 Hct 45.7 % (37-53) 09/02/24 15:38 MCV 92.0 fl (82-101) 09/02/24 15:38 MCH 31.4 pg (27-33) 09/02/24 15:38 MCHC 34.1 g/dL (30-55) 09/02/24 15:38 RDW 12.3 % (12.1-15.1) 09/02/24 15:38 Plt Count 197 10^3/cmm (157-399) 09/02/24 15:38 MPV 10.3 fL (7.4-10.4) 09/02/24 15:38 Neut % (Auto) 77.8 % 09/02/24 15:38 Lymph % (Auto) 12.2 % 09/02/24 15:38 [place] % (Auto) 7.8 % 09/02/24 15:38 Eos % (Auto) 1.2 % 09/02/24 15:38 Baso % (Auto) 0.9 % 09/02/24 15:38 Neut # (Auto) 5.36 10^3/uL (1.8-7.7) 09/02/24 15:38 Lymph # (Auto) 0.8 10^3/uL (0.8-4.8) 09/02/24 15:38 [place] # (Auto) 0.5 10^3/uL (0.2-0.9) 09/02/24 15:38 Eos # (Auto) 0.1 10^3/uL (0.0-0.8) 09/02/24 15:38 Baso # (Auto) 0.1 10^3/uL (0.0-0.1) 09/02/24 15:38 Nucleated RBC % (auto) 0 % 09/02/24 15:38 Nucleated RBCs # 0.0 /100WBC 09/02/24 15:38 PT 12.90 SECONDS (12.1-14.9) 09/02/24 15:38 INR 0.94 (0.8-1.2) 09/02/24 15:38 Sodium 140 mmol/L (136-145) 09/02/24 15:38 Potassium 4.5 mmol/L (3.5-5.1) 09/02/24 15:38 Chloride 103 mmol/L (98-107) 09/02/24 15:38 Carbon Dioxide 24 mmol/L (22-29) 09/02/24 15:38 Anion Gap 17.5 (5-19) 09/02/24 15:38 BUN 18 mg/dL (8-23) 09/02/24 15:38 Creatinine 1.0 mg/dL (0.7-1.2) 09/02/24 15:38 GFR Calculation Not Reportable 09/02/24 15:38 Glucose 226 mg/dL (65-115) H 09/02/24 15:38 Calculated Osmolality 299 mOsm/kg (285-295) H 09/02/24 15:38 Calcium 9.8 mg/dL (8.5-10.5) 09/02/24 15:38 Total Bilirubin 0.6 mg/dL (0.15-1.2) 09/02/24 15:38 AST 19 U/L (0-40) 09/02/24 15:38 ALT 22 U/L (0-41) 09/02/24 15:38 Alkaline Phosphatase 101 U/L (40-130) 09/02/24 15:38 Troponin T Baseline 35 ng/L (0-15) H 09/02/24 15:38 Total Protein 6.6 g/dL (6.6-8.7) 09/02/24 15:38 Albumin 4.7 g/dL (3.5-5.2) 09/02/24 15:38 Globulin 1.9 g/dL (1.3-4.6) 09/02/24 15:38 Lipase 29 U/L (13-60) 09/02/24 15:38 All radiology interpretation(s) finalized by discharge EKG Data EKG 1: I personally reviewed and interpreted this EKG as follows: EKG interpretation date: 09/02/24 EKG interpretation time: 15:25 Ischemic changes: acute STEMI Interpretation: Acute anterior ST elevation NE with elevation of the ST segments in V2 3 4 and 5. Rate of 68 LA interval of 182 Discharge Plan Discharge Patient Disposition: Admitted As Inpatient Clinical Impression: ST elevation myocardial infarction (STEMI) Condition: Stable Coding Level of Care Code ED Belt Worker for Mariel York
[2024-09-02 15:43] LABS: Basophils # 0.1 10^3/uL (0.0-0.1); Basophils % 0.9 %; Eosinophils # 0.1 10^3/uL (0.0-0.8); Eosinophils % 1.2 %; Hematocrit 45.7 % (37-53); Lymphocytes # 0.8 10^3/uL (0.8-4.8); Lymphocytes % 12.2 %; Mean Corpuscular HGB Conc 34.1 g/dL (30-55); Mean Corpuscular Hemoglobin 31.4 pg (27-33); Mean Platelet Volume 10.3 fL (7.4-10.4); Monocytes # 0.5 10^3/uL (0.2-0.9); Monocytes % 7.8 %; Neutrophils # 5.36 10^3/uL (1.8-7.7); Neutrophils % 77.8 %; Nucleated Red Blood Cells % 0 %; Platelet Count 197 10^3/cmm (157-399); Red Blood Count 4.97 10^6/uL (3.85-5.65); Red Cell Distribution Width 12.3 % (12.1-15.1); White Blood Count 6.89 10^3/uL (3.29-11.43)
[2024-09-02] MEDS: aspirin 325 mg Tablet PO (15:53)
[2024-09-02] MEDS: clopidogrel 300 mg Tablet 600 MG PO (15:53)
[2024-09-02 15:56] LABS: INR 0.94 (0.8-1.2)
[2024-09-02 16:01] LABS: Troponin(5th) Baseline 35 ng/L (0-15)
[2024-09-02 16:02] LABS: Alanine Aminotransferase 22 U/L (0-41); Albumin Level 4.7 g/dL (3.5-5.2); Alkaline Phosphatase 101 U/L (40-130); Anion Gap 17.5 (5-19); Aspartate Amino Transferase 19 U/L (0-40); Blood Urea Nitrogen 18 mg/dL (8-23); Calcium 9.8 mg/dL (8.5-10.5); Carbon Dioxide 24 mmol/L (22-29); Chloride 103 mmol/L (98-107); Creatinine Clr Calc Pharmacy 72.5131; Globulin 1.9 g/dL (1.3-4.6); Glucose 226 mg/dL (65-115); Lipase 29 U/L (13-60); Osmolality Calculated 299 mOsm/kg (285-295); Potassium 4.5 mmol/L (3.5-5.1); Sodium 140 mmol/L (136-145); Total Bilirubin 0.6 mg/dL (0.15-1.2); Total Protein 6.6 g/dL (6.6-8.7)
--- NOTE | 2024-09-02 17:25 | ECG_ITS ---
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1950 Requested By: Mona Garcia Order Number: [id number] Reading MD: PREM OLIVARES Measurements Intervals [place] Rate: 77 P: 44 ND: 207 QRS: -16 QRSD: 100 T: 78 QT: 432 QTc: 489 Interpretive Statements SINUS RHYTHM WITH FREQUENT VENTRICULAR PREMATURE COMPLEXES ANTEROSEPTAL MYOCARDIAL INFARCTION , PROBABLY RECENT [40+ ms Q WAVE IN V1-V4] Compared to ECG 09/02/2024 15:25:47 ST (T wave) deviation no longer present Myocardial infarct finding still present Electronically Signed On 09-03-2024 16:15:44 DIRECTOR OPERATIONS BROADCAST by PREM OLIVARES [email or web address]
--- NOTE | 2024-09-02 18:18 | PC.NURSE ---
Patient arrived to ICU 8 at 1814 via bed from optical laboratory technician, TR band in place on right wrist with 15ml air, pulses present, Right femoral access site soft, pulses present distally,assessed with Sotero MAYEN and Dr. Brower. Patient reports no pain.
[2024-09-02] MEDS: sodium chloride 0.9% 1,000 ML 30 ML IV (19:30)
[2024-09-02] MEDS: morphine 4 mg/mL SDV 1 mL 2 MG IVP (20:37)
[2024-09-02] MEDS: atorvastatin 40 mg Tablet 80 MG PO (20:42)
--- NOTE | 2024-09-02 21:59 | ECG_ITS ---
[facility] Test Date: 2024-09-02 Pat Name: Nam Padilla Department: Room: 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1950 Requested By: Mona Garcia Order Number: [id number] Reading MD: PREM OLIVARES Measurements Intervals [place] Rate: 70 P: 52 MT: 198 QRS: 7 QRSD: 94 T: 124 QT: 478 QTc: 519 Interpretive Statements SINUS RHYTHM ANTEROSEPTAL MYOCARDIAL INFARCTION , PROBABLY RECENT [40+ ms Q WAVE IN V1-V4] Compared to ECG 09/02/2024 18:21:58 Ventricular premature complex(es) no longer present Myocardial infarct finding still present Electronically Signed On 09-03-2024 16:15:34 PORTABLE TRACK CREW CHIEF by PREM OLIVARES [id number]
--- NOTE | 2024-09-02 22:48 | PC.NURSE ---
Recieved report from Desire RN - patient post heart cath with tr band in place on right wrist, dressing without bleeding noted right groin, shadow bruising noted on groin down into leg. Patient alert and oriented x 4 at bedside. pulses wnl. no iv fluids infusing. Sinus rhythm noted on monitor with ectopy frequent pvcs. bp slightly elevated. Patient voiced understanding of post op instructions. Patient speaks Adan, Fijian and New Zealander. Clear liquids started. Patient voiced understanding of instructions to remain lying flat in bed.
--- NOTE | 2024-09-02 22:54 | PC.NURSE ---
Patient with quarter sized bleeding noted on dressing at right groining, 1 cm hematoma noted to be forming. Patient with elevated bp prior and chest discomfort with frequent pvc/s Dr. Brower had been called was started on nitroglycerine drip - titrated for bp control. Pressure reheld at right groin cath site x 30 minutes with hemostatis obtained. Will continue to monitor.
[2024-09-03] VITALS (56 sets, daily range): BP systolic 94–152; BP diastolic 65–107; PULSE 60–82; RESP 12–27; TEMP 36.2–37.1; O2SAT 92–99
--- NOTE | 2024-09-03 00:50 | PC.NURSE ---
TR band deflated slowly 1-2 cc per 15 minute- due to elevated bp with titration of nitroglycerine and femoral oozing with additional pressure held to site. Band completely deflated at 2345. site wnl. Patient instructed to keep wrist straight. No hematoma noted - op site over puncture site.
[2024-09-03] MEDS: alum-mag-hydroxide-sime 30 mL UDC PO ×2 (01:09→17:00)
--- NOTE | 2024-09-03 04:07 | PC.NURSE ---
Ipad Gabonese video sales support technician used to discuss post op care, signs and symptoms of complications, exercise and weight restrictions post catheterization, post op diet and site care, routine hospital expectations ie meals, ambulation, room changes, diagnosis, heart cath results ie stint placement, patient wishes for resuscitation-living will information requested, suicidal risk and abuse assessment completed, medication currently receiving reviewed and morning medications ie plavix to be given. Medications sheet only available in Prydeinig and Rwandan for patient ( patient speaks/ reads Gabonese, Prydeinig and Rwandan.)
[2024-09-03 05:45] LABS: Basophils % 0.4 %; Eosinophils % 0.2 %; Hematocrit 39.6 % (37-53); Lymphocytes # 0.5 10^3/uL (0.8-4.8); Lymphocytes % 5.5 %; Mean Corpuscular HGB Conc 33.1 g/dL (30-55); Mean Corpuscular Hemoglobin 30.8 pg (27-33); Mean Corpuscular Volume 93.2 fl (82-101); Mean Platelet Volume 10.2 fL (7.4-10.4); Monocytes # 0.6 10^3/uL (0.2-0.9); Monocytes % 7.9 %; Neutrophils # 6.97 10^3/uL (1.8-7.7); Neutrophils % 85.6 %; Nucleated Red Blood Cells % 0 %; Platelet Count 157 10^3/cmm (157-399); Red Blood Count 4.25 10^6/uL (3.85-5.65); Red Cell Distribution Width 12.6 % (12.1-15.1); White Blood Count 8.14 10^3/uL (3.29-11.43)
[2024-09-03 06:00] LABS: Anion Gap 10.5 (5-19); Blood Urea Nitrogen 17 mg/dL (8-23); Calcium 8.8 mg/dL (8.5-10.5); Carbon Dioxide 25 mmol/L (22-29); Chloride 105 mmol/L (98-107); Creatinine Clr Calc Pharmacy 91.8711; Glucose 135 mg/dL (65-115); Osmolality Calculated 286 mOsm/kg (285-295); Potassium 4.5 mmol/L (3.5-5.1); Sodium 136 mmol/L (136-145)
[2024-09-03] MEDS: clopidogrel 75 mg Tablet PO (08:10)
--- NOTE | 2024-09-03 08:37 | USCV_ITS ---
Nam Padilla Age: 74 Gender: M : 1950 Exam Date: 09/03/2024 17:25 Ordering Phys: Marquita Martin NP Technologist: CT Exam Location: [facility] Indication: nstemi BP: 139 / 92 HR: 72 Rhythm: Sinus Technical Quality: Adequate MEASUREMENTS (Male / Female) Normal Values 2D ECHO LVOT Diameter 2.1 cm LV Ejection Fraction MOD 4C 26.0 % LV Ejection Fraction MOD 2C 46.2 % LV Ejection Fraction 2C AL 47.3 % LA Diameter 4.7 cm RA Systolic Volume 4C AL 67.2 ml RA Systolic Volume 4C MOD 63.6 ml LA Sys Volume AL 43.6 cm cubed LA Sys Volume Index AL 20.5 cm cubed/m squared Aorta at Sinotubular Diameter 3.1 cm M-MODE LA Ao Ratio MM 1.7 AV Cusp Separation MM 1.9 cm DOPPLER AV Peak Velocity 113.0 cm/s LVOT Peak Velocity 80.0 cm/s AV Area Cont Eq vti 2.5 cm squared AV Area Cont Eq pk 2.4 cm squared MV Peak Velocity 83.0 cm/s MV Area PHT 4.9 cm squared Mitral E to A Ratio 1.0 PV Peak Velocity 83.5 cm/s FINDINGS Left Ventricle Moderate hypokinesia of the mid and apical septum segments of the left ventricle with a features of apical ballooning. LV ejection fraction around 46% Right Ventricle The right ventricle is normal in size and function. Right Atrium The right atrium is normal in size. Left Atrium Mildly increased left atrial size. Mitral Valve Trace mitral valve regurgitation. Aortic Valve Grnx-sl-yxjjsogg aortic valve regurgitation. Thickened aortic valve Tricuspid Valve No gross abnormalities noted Pulmonic Valve No gross abnormalities noted Pericardium Normal pericardium without effusion. Aorta Normal ascending aorta dimension. IVC Inferior vena cava not visualized. CONCLUSIONS Moderate hypokinesia of the mid and apical septum segments of the left ventricle with a features of apical ballooning. LV ejection fraction of 46% Mildly increased left atrial size. Trace mitral valve regurgitation. Lrqc-[id number]-khgyhnip aortic valve regurgitation. Thickened aortic valve. There is no pericardial effusion. There are no intracardiac masses. No similar previous studies are available for comparison Revised copy of the test result from 09/03/2024 Dr Aleisha Aquino MD FACC (Electronically Signed) Final Date: 04 September 2024 08:22 Amended: 05 September 2024 14:09 C
[2024-09-03] MEDS: metoprolol succinate ER (24 HR) 25 mg Tablet 12.5 MG PO (09:02)
[2024-09-03] MEDS: aspirin 81 mg EC Tablet PO (09:03)
--- NOTE | 2024-09-03 14:14 | P.PN_ITS ---
<Statement entered by Salma Brower MD - 09/03/24 22:23> Patient was evaluated and cared for in conjunction with an advanced practice practitioner. I personally examined the patient and reviewed the chart and all pertinent data including imaging, telemetry, and laboratory results. I discussed the patient in detail with the advanced practice practitioner. Please see their note for complete H&P testing result and agreed upon plan of care for the patient. Subjective 2 Subjective: Patient doing well overall. States he has some issues with left-sided chest tightness but nothing severe. Groin site had some trouble with bleeding post cath but at this time is well sealed with no evidence of hematoma. We will add beta-malathi aspirin Plavix today and get an echo. Medications: Reviewed: Yes Vitals/I&O/Wt Last Vital Signs Temp 98.5 F 09/03/24 13:00 Pulse 77 09/03/24 13:00 Resp 16 09/03/24 13:00 BP 138/88 09/03/24 13:00 Pulse Ox 94 09/03/24 13:00 O2 Del Method Room Air 09/03/24 13:00 O2 Flow Rate 1 09/03/24 03:00 09/02/24 09/03/24 09/03/24 22:59 06:59 14:59 Intake Total 314.975 / 314.975 264.75 / 579.725 442.125 / 442.125 Output Total 250 / 250 250 / 500 300 / 300 Balance 64.975 / 64.975 14.75 / 79.725 142.125 / 142.125 Weight last 48 hrs Weight 199 lb 1.6 oz Weight 203 lb Weight 193 lb Physical Exam 2 Narrative: General: No apparent distress, healthy appearing, well nourished Neck: No carotid bruit bilaterally Muskuloskeletal: Full ROM Lymphatic: no lymphedema noted Respiratory: Normal respiratory effort, clear to auscultation bilaterally throughout all lung solorzano, no use of accessory muscles Cardio: No JVD, regular rate, regular rhythm, S1 S2 normal, no murmurs, peripheral pulses 2+ throughout GI: Normal to inspection, nondistended Extremities: Full ROM, normal, normal capillary refill, no cyanosis or edema Neuro: Alert and oriented x4, no focal motor deficits Psych: Affect normal, denies suicidal ideation, mental status grossly normal Skin: Right groin puncture site small amount of previous oozing but no active bleeding no evidence of hematoma present soft palpable femoral pulse Data 09/03/24 05:23 09/03/24 05:23 A&P Assessment and plan (1) ST elevation (STEMI) myocardial infarction: Patient status post coronary artery stenting. Continue dual antiplatelet therapy will initiate beta-malathi status post STEMI and get an echocardiogram. Qualifiers: Involved coronary artery: LAD coronary artery Qualified Code(s): I21.02 - ST elevation (STEMI) myocardial infarction involving left anterior descending coronary artery (2) Hypertension: Patient takes amlodipine will optimize medications to keep blood pressure in optimal range. Starting metoprolol succinate. Qualifiers: Hypertension type: primary hypertension Qualified Code(s): I10 - Essential (primary) hypertension Plan The plan is to transfer patient to stepdown. He was having some chest discomfort but he required 2-3 shocks from V-fib during his procedure. Continue dual antiplatelet therapy. Starting metoprolol succinate 12.5 daily and getting an echocardiogram. Continue to monitor for any bleeding from groin site. Patient most likely will be discharged tomorrow. Continue statin therapy. Attestations 2 Medical Necessity Statement*: Patient is expecting to cross 2 midnights and stay due to acute STEMI requiring inpatient stay in the ICU and PCI. Coding Level of Care Code Acute Code for [facility] Fwd Diagnoses ST elevation myocardial infarction involving left anterior descending (LAD) coronary artery I21.02 Involved coronary artery: LAD coronary artery Primary hypertension I10 Hypertension type: primary hypertension
[2024-09-03] MEDS: magnesium hydroxide 30 mL UDC PO (15:16)
--- NOTE | 2024-09-03 16:30 | ECG_ITS ---
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 Measurements Intervals [place] Rate: 67 P: 2 SC: 196 QRS: -1 QRSD: 93 T: 151 QT: 489 QTc: 519 Interpretive Statements SINUS RHYTHM MARKED T-WAVE ABNORMALITY, CONSIDER ANTEROLATERAL ISCHEMIA [-0.5+ mV T-WAVE IN I/aVL/V3-V6] Compared to ECG 09/02/2024 21:59:47 T-wave abnormality now present Possible ischemia now present Myocardial infarct finding no longer present Electronically Signed On 09-03-2024 16:44:56 ACCOUNTING ADVISORY SERVICES MANAGER by Orlando Polo M.D. [email or web address]
[2024-09-03] MEDS: FUROsemide 10 mg/mL SDV 4mL 40 MG IVP (16:53)
[2024-09-03] MEDS: HYDROcodone-acetaminophen 5-325 mg Tablet 1 TAB PO (17:03)
--- NOTE | 2024-09-03 17:15 | PC.NURSE ---
Patient reports chest pain/pressure increased from 2-5 on scale and that he feels like his breathing was not as good as before. Lungs are clear to auscultation, work of breathing does not appear labored, O2 on monitor 97%. This nurse called Dr. Brower and order for 40mg IVP lasix once, and to stop IV fluids, as well as to obtain EKG.
[2024-09-03] MEDS: ALPRAZolam 0.5 mg Tablet 0.25 MG PO (18:08)
--- NOTE | 2024-09-03 19:00 | PC.NURSE ---
Translation Ipad : Ipad location made known to night shift supervisor nurse, Patient asked if he and family understood all verbal education verbalized in Macedonian, patient stated, Yes I have understood, my is [place]. Patients MAMI at bedside and agrees that all education is understood. Patient and family instructed to request Ipad when needed, but family and patient have declined use during day shift.
[2024-09-03] MEDS: atorvastatin 40 mg Tablet 80 MG PO (19:35)
[2024-09-04] VITALS (44 sets, daily range): BP systolic 86–140; BP diastolic 47–96; PULSE 56–88; RESP 12–28; TEMP 36.8; O2SAT 92–98
--- NOTE | 2024-09-04 03:26 | PC.NURSE ---
Translation iPad This nurse and off-going day shift nurse made sure patient was aware of the availability of translation iPad for use. Patient denied needing iPad and affirmed that he understood all communication and had no questions. iPad remains available on unit for further use if needed.
[2024-09-04 05:45] LABS: Basophils % 0.9 %; Eosinophils # 0.1 10^3/uL (0.0-0.8); Eosinophils % 1.3 %; Hematocrit 39.3 % (37-53); Lymphocytes # 0.8 10^3/uL (0.8-4.8); Lymphocytes % 17.4 %; Mean Corpuscular HGB Conc 34.1 g/dL (30-55); Mean Corpuscular Hemoglobin 31.9 pg (27-33); Mean Corpuscular Volume 93.6 fl (82-101); Mean Platelet Volume 10.5 fL (7.4-10.4); Monocytes # 0.5 10^3/uL (0.2-0.9); Monocytes % 11.3 %; Neutrophils # 3.13 10^3/uL (1.8-7.7); Neutrophils % 69.1 %; Nucleated Red Blood Cells % 0 %; Platelet Count 134 10^3/cmm (157-399); Red Cell Distribution Width 12.4 % (12.1-15.1); White Blood Count 4.53 10^3/uL (3.29-11.43)
[2024-09-04 06:12] LABS: Anion Gap 10.5 (5-19); Blood Urea Nitrogen 13 mg/dL (8-23); Carbon Dioxide 28 mmol/L (22-29); Chloride 103 mmol/L (98-107); Creatinine Clr Calc Pharmacy 82.1333; Glucose 103 mg/dL (65-115); Osmolality Calculated 284 mOsm/kg (285-295); Potassium 4.5 mmol/L (3.5-5.1); Sodium 137 mmol/L (136-145)
[2024-09-04] MEDS: metoprolol succinate ER (24 HR) 25 mg Tablet 12.5 MG PO (08:32)
[2024-09-04] MEDS: aspirin 81 mg EC Tablet PO (08:32)
[2024-09-04] MEDS: clopidogrel 75 mg Tablet PO (08:32)
[2024-09-04] MEDS: sacubitril/valsartan 24-26 mg Tablet 1 EACH PO (17:33)
[2024-09-04] MEDS: FUROsemide 10 mg/mL SDV 4mL 40 MG IVP (17:33)
[2024-09-04] MEDS: potassium chloride ER 20 mEq Tablet PO (17:33)
[2024-09-04] MEDS: ondansetron 2 mg/ML SDV 2 mL 4 MG IVP (19:35)
--- NOTE | 2024-09-04 20:02 | P.PN_ITS ---
<Statement entered by Salma Brower MD - 09/05/24 09:12> Patient was evaluated and cared for in conjunction with an advanced practice practitioner. I personally examined the patient and reviewed the chart and all pertinent data including imaging, telemetry, and laboratory results. I discussed the patient in detail with the advanced practice practitioner. Please see their note for complete H&P testing result and agreed upon plan of care for the patient. Status post PCI to LAD for ST elevation [place]. Patient is complaining of shortness of breath. He has some residual chest pain with possible anxiety GENERAL: Patient is alert, awake and oriented x3. HEART: Regular S1 and S2. No murmur, rub or gallop. LUNGS: Clear to auscultate bilaterally. CENTRAL NERVOUS SYSTEM: Grossly nonfocal. EXTREMITIES: Lower extremities with out edema bilaterally. Assessment and plan Status post myocardial infarction STEMI status post LAD stent Ischemic cardiomyopathy with moderately depressed left ventricular ejection fraction Acute decompensated heart failure secondary to [place] and reduced ejection fraction Continue dual antiplatelet therapy Add IV Lasix 40 mg once a day Start patient on Entresto for reduced ejection fraction Patient can move out of ICU For above defined treatment patient require continuation of hospitalization. Subjective 2 Subjective: Overall, patient doing ok. Has some discomfort to his left chest at times, but this is controlled. Medications: Reviewed: Yes Vitals/I&O/Wt Last Vital Signs Temp 98.2 F 09/04/24 06:00 Pulse 62 09/04/24 17:30 Resp 17 09/04/24 17:30 BP 115/73 09/04/24 18:00 Pulse Ox 98 09/04/24 17:30 O2 Del Method Room Air 09/04/24 11:19 O2 Flow Rate 1 09/03/24 03:00 09/04/24 09/04/24 09/04/24 06:59 14:59 22:59 Intake Total 0 / 1316.625 360 / 360 240 / 600 Output Total 1200 / 1200 Balance 0 / -183.375 -840 / -840 240 / -600 Weight last 48 hrs Weight 201 lb 11.567 oz Weight 199 lb 1.6 oz Physical Exam 2 Narrative: General: No apparent distress, healthy appearing, well nourished Neck: No carotid bruit bilaterally Muskuloskeletal: Full ROM Lymphatic: no lymphedema noted Respiratory: Normal respiratory effort, fine crackles bilateral lower lobes, no use of accessory muscles Cardio: No JVD, regular rate, regular rhythm, S1 S2 normal, no murmurs, peripheral pulses 2+ throughout GI: Normal to inspection, nondistended Extremities: Full ROM, normal, normal capillary refill, no cyanosis or edema Neuro: Alert and oriented x4, no focal motor deficits Psych: Affect normal, denies suicidal ideation, mental status grossly normal Skin: Right groin puncture site small amount of previous oozing but no active bleeding no evidence of hematoma present soft palpable femoral pulse Data 09/04/24 05:04 09/04/24 05:04 A&P Assessment and plan (1) ST elevation (STEMI) myocardial infarction: Patient status post coronary artery stenting. Continue dual antiplatelet therapy will initiate beta-malathi status post STEMI. Echo showed Ef 45%. Will start entresto and watch bp. Qualifiers: Involved coronary artery: LAD coronary artery Qualified Code(s): I21.02 - ST elevation (STEMI) myocardial infarction involving left anterior descending coronary artery (2) Hypertension: Patient takes amlodipine will optimize medications to keep blood pressure in optimal range. On metoprolol succinate. Qualifiers: Hypertension type: primary hypertension Qualified Code(s): I10 - Essential (primary) hypertension Plan The plan is to transfer patient to stepdown when bed available. He was having some chest discomfort but he required 2-3 shocks from V-fib during his procedure. Continue dual antiplatelet therapy. Continue metoprolol succinate 12.5 daily and add Entresto. Continue to monitor for any bleeding from groin site. Patient most likely will be discharged tomorrow. Continue statin therapy. Attestations 2 Medical Necessity Statement*: Patient is expecting to cross 2 midnights and stay due to acute STEMI requiring inpatient stay in the ICU and PCI. Coding Level of Care Code Acute Code for [facility] Fwd Diagnoses ST elevation myocardial infarction involving left anterior descending (LAD) coronary artery I21.02 Involved coronary artery: LAD coronary artery Primary hypertension I10 Hypertension type: primary hypertension
[2024-09-04] MEDS: atorvastatin 40 mg Tablet 80 MG PO (20:57)
[2024-09-05] VITALS (29 sets, daily range): BP systolic 73–116; BP diastolic 45–70; PULSE 54–85; RESP 10–35; TEMP 36.5–37.3; O2SAT 91–97
[2024-09-05 05:02] LABS: Basophils % 0.4 %; Eosinophils # 0.1 10^3/uL (0.0-0.8); Eosinophils % 1.2 %; Hematocrit 40.7 % (37-53); Lymphocytes # 0.9 10^3/uL (0.8-4.8); Lymphocytes % 12.7 %; Mean Corpuscular HGB Conc 34.2 g/dL (30-55); Mean Corpuscular Hemoglobin 31.7 pg (27-33); Mean Corpuscular Volume 92.9 fl (82-101); Mean Platelet Volume 10.8 fL (7.4-10.4); Monocytes # 0.7 10^3/uL (0.2-0.9); Monocytes % 10.9 %; Neutrophils # 4.95 10^3/uL (1.8-7.7); Neutrophils % 74.4 %; Nucleated Red Blood Cells % 0 %; Platelet Count 161 10^3/cmm (157-399); Red Blood Count 4.38 10^6/uL (3.85-5.65); Red Cell Distribution Width 12.3 % (12.1-15.1); White Blood Count 6.67 10^3/uL (3.29-11.43)
[2024-09-05 05:26] LABS: Anion Gap 13.3 (5-19); Blood Urea Nitrogen 18 mg/dL (8-23); Calcium 9.3 mg/dL (8.5-10.5); Carbon Dioxide 26 mmol/L (22-29); Chloride 101 mmol/L (98-107); Glucose 108 mg/dL (65-115); Osmolality Calculated 284 mOsm/kg (285-295); Potassium 4.3 mmol/L (3.5-5.1); Sodium 136 mmol/L (136-145)
[2024-09-05] MEDS: sodium chloride 0.9% 250 ML IV (05:35)
[2024-09-05] MEDS: metoprolol succinate ER (24 HR) 25 mg Tablet 12.5 MG PO (08:04)
[2024-09-05] MEDS: clopidogrel 75 mg Tablet PO (08:05)
[2024-09-05] MEDS: aspirin 81 mg EC Tablet PO (08:05)
[2024-09-05] MEDS: sacubitril/valsartan 24-26 mg Tablet 1 EACH PO (08:05)
--- NOTE | 2024-09-05 11:57 | PC.SOCIAL ---
IMM Update Pg. 2 of IMM updated. Initialed, dated, and timed, copy provided at bedside.
--- NOTE | 2024-09-05 13:14 | PC.NURSE ---
Patient received discharge orders, All IV's removed. Prescriptions sent to preferred pharmacy. All instructions and activity restrictions explained to patient who verbalized understanding. No questions at this time. Patient dressing. All patient belongings sent with patient. Patient will exit to main exit, after all follow up appointments are made.
--- NOTE | 2024-09-05 14:03 | PC.NURSE ---
Patient ambulated to main exit at 1403
--- NOTE | 2024-09-05 15:06 | P.DS_ITS ---
<Statement entered by Salma Brower MD - 09/06/24 21:58> Patient was evaluated and cared for in conjunction with an advanced practice practitioner. I personally examined the patient and reviewed the chart and all pertinent data including imaging, telemetry, and laboratory results. I discussed the patient in detail with the advanced practice practitioner. Please see their note for complete H&P testing result and agreed upon plan of care for the patient. 74-year-old male presented with ST elevation AL treated with drug-eluting stent to LAD over next few days his medicines were optimized he was noted to be in decompensated heart failure treated with guideline medical therapy for heart failure today doing fine from a cardiac perspective and would like to go home he will be discharged. GENERAL: Patient is alert, awake and oriented x3. HEART: Regular S1 and S2. No murmur, rub or gallop. LUNGS: Clear to auscultate bilaterally. CENTRAL NERVOUS SYSTEM: Grossly nonfocal. EXTREMITIES: Lower extremities with out edema bilaterally. ST elevation AL status post drug-eluting stent to mid LAD Moderately depressed left ventricular ejection fraction Continue dual antiplatelet therapy for at least 1 year Continue aspirin and statin beta-malathi and Entresto Cardiac rehab enrollment Patient will be discharged today Follow-up with cardiology clinic in 1 week Discharge Providers Date of Admission: 09/02/24 17:19 Date of Discharge: September 05, 2024 Attending Provider at Admission: Salma Brower MD Attending Provider at Discharge: Salma Brower MD Consults: None. Primary Care Provider: DIAZ Gomez Diagnoses at Discharge Discharge Diagnosis (1) ST elevation (STEMI) myocardial infarction: Status: Acute Qualifiers: Involved coronary artery: LAD coronary artery Qualified Code(s): I21.02 - ST elevation (STEMI) myocardial infarction involving left anterior descending coronary artery (2) Hypertension: Status: Acute Qualifiers: Hypertension type: primary hypertension Qualified Code(s): I10 - Essent ial (primary) hypertension Reason for Visit Reason for Visit: Severe chest pain Brief History: Nam Padilla is a 74 year old male past medical history not significant for any major problem not on any medicine apart from pantoprazole which she takes for GERD started having chest when it does not get better he called 911 twelve- lead EKG was suggestive of anterior lead ST elevation. STEMI pager was activated. Dr. Brower immediately saw the patient in the ER. Patient was in severe chest pain and distress. Hospital Course Hospital Course Dr. Brower proceeded with emergent left heart cath. Patient had a totally occluded LAD. He underwent angioplasty and stenting of the mid lad. Echo post cath showed EF decreased at 46% with apical ballooning. Patient was started on beta-malathi Entresto and Lasix daily. He did have a little bit of chest discomfort after the procedure but overall this dissipated with slight diuresis and patient improved. He will continue aspirin and Plavix at least for 2 years. Of note he did have some bleeding issues from his right groin immediately post cath but that resolved with pressure being held and patient does not have any signs or symptoms of residual hematoma. Physical Exam Narrative: General: No apparent distress, healthy appearing, well nourished Neck: No carotid bruit bilaterally Muskuloskeletal: Full ROM Lymphatic: no lymphedema noted Respiratory: Normal respiratory effort, fine crackles bilateral lower lobes, no use of accessory muscles Cardio: No JVD, regular rate, regular rhythm, S1 S2 normal, no murmurs, peripheral pulses 2+ throughout GI: Normal to inspection, nondistended Extremities: Full ROM, normal, normal capillary refill, no cyanosis or edema Neuro: Alert and oriented x4, no focal motor deficits Psych: Affect normal, denies suicidal ideation, mental status grossly normal Skin: Right groin puncture site small amount of previous oozing but no active bleeding no evidence of hematoma present soft palpable femoral pulse Discharge Data Studies Completed and Pending Completed Studies During Hospitalization Category Date Time Status XR chest 1V portable [id number] Stat Exams 09/02/24 15:24 Completed CV. 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 Laboratory Results WBC 6.67 10^3/uL (3.29-11.43) 09/05/24 04:12 RBC 4.38 10^6/uL (3.85-5.65) 09/05/24 04:12 Hgb 13.90 g/dL (11.27-16.99) 09/05/24 04:12 Hct 40.7 % (37-53) 09/05/24 04:12 MCV 92.9 fl (82-101) 09/05/24 04:12 MCH 31.7 pg (27-33) 09/05/24 04:12 MCHC 34.2 g/dL (30-55) 09/05/24 04:12 RDW 12.3 % (12.1-15.1) 09/05/24 04:12 Plt Count 161 10^3/cmm (157-399) 09/05/24 04:12 MPV 10.8 fL (7.4-10.4) H 09/05/24 04:12 Neut % (Auto) 74.4 % 09/05/24 04:12 Lymph % (Auto) 12.7 % 09/05/24 04:12 Dundy % (Auto) 10.9 % 09/05/24 04:12 Eos % (Auto) 1.2 % 09/05/24 04:12 Baso % (Auto) 0.4 % 09/05/24 04:12 Neut # (Auto) 4.95 10^3/uL (1.8-7.7) 09/05/24 04:12 Lymph # (Auto) 0.9 10^3/uL (0.8-4.8) 09/05/24 04:12 Dundy # (Auto) 0.7 10^3/uL (0.2-0.9) 09/05/24 04:12 Eos # (Auto) 0.1 10^3/uL (0.0-0.8) 09/05/24 04:12 Baso # (Auto) 0.0 10^3/uL (0.0-0.1) 09/05/24 04:12 Nucleated RBC % (auto) 0 % 09/05/24 04:12 Nucleated RBCs # 0.0 /100WBC 09/05/24 04:12 PT 12.90 SECONDS (12.1-14.9) 09/02/24 15:38 INR 0.94 (0.8-1.2) 09/02/24 15:38 Sodium 136 mmol/L (136-145) 09/05/24 04:12 Potassium 4.3 mmol/L (3.5-5.1) 09/05/24 04:12 Chloride 101 mmol/L (98-107) 09/05/24 04:12 Carbon Dioxide 26 mmol/L (22-29) 09/05/24 04:12 Anion Gap 13.3 (5-19) 09/05/24 04:12 BUN 18 mg/dL (8-23) 09/05/24 04:12 Creatinine 1.0 mg/dL (0.7-1.2) 09/05/24 04:12 GFR Calculation Not Reportable 09/05/24 04:12 Glucose 108 mg/dL (65-115) 09/05/24 04:12 Calculated Osmolality 284 mOsm/kg (285-295) L 09/05/24 04:12 Calcium 9.3 mg/dL (8.5-10.5) 09/05/24 04:12 Total Bilirubin 0.6 mg/dL (0.15-1.2) 09/02/24 15:38 AST 19 U/L (0-40) 09/02/24 15:38 ALT 22 U/L (0-41) 09/02/24 15:38 Alkaline Phosphatase 101 U/L (40-130) 09/02/24 15:38 Troponin T Baseline 35 ng/L (0-15) H 09/02/24 15:38 Total Protein 6.6 g/dL (6.6-8.7) 09/02/24 15:38 Albumin 4.7 g/dL (3.5-5.2) 09/02/24 15:38 Globulin 1.9 g/dL (1.3-4.6) 09/02/24 15:38 Lipase 29 U/L (13-60) 09/02/24 15:38 Procedures Performed Left heart cath with PCI of the mid LAD angioplasty and stent. Vitals Last Vital Signs Temp 97.7 F 09/05/24 08:30 Pulse 85 09/05/24 13:12 Resp 16 09/05/24 13:12 BP 116/70 09/05/24 13:12 Pulse Ox 93 09/05/24 13:12 O2 Del Method Room Air 09/04/24 11:19 O2 Flow Rate 1 09/03/24 03:00 Discharge Plan Discharge Patient Disposition: Home Condition: Stable Prescriptions: New atorvastatin 40 mg Tablet 80 mg PO BEDTIME 30 Days Qty: 30 0RF aspirin 81 mg Tablet,Delayed Release (Dr/Ec) 81 mg PO DAILY 30 Days Qty: 90 3RF metoprolol succinate 25 mg Tablet Extended Release 24 Hr 12.5 mg PO DAILY 30 Days Qty: 30 0RF sacubitril-valsartan [Entresto] 24-26 mg Tablet 1 tab PO BID 30 Days Qty: 60 0RF furosemide [Lasix] 20 mg tablet 20 mg PO DAILY Qty: 30 0RF potassium chloride 10 mEq tablet extended release 10 meq PO DAILY Qty: 30 0RF clopidogrel [Plavix] 75 mg tablet 75 mg PO DAILY Qty: 90 3RF Discharge Orders: Discharge Order (Routine); Ordered 09/05/24 Ordered By: Marquita Martin Other Ambulatory Orders: CV carotid duplex BI* [id number] (Routine) Timeframe: 3 Weeks Facility: [facility] - Location: Radiology [facility] Ordered By: Marquita Martin Referrals: Radha Fox FNP [Primary Care Provider] - 09/07/24 1:20 pm (We have notified your physician's clinic of the need for a follow-up appointment to be scheduled. If you have not heard from them within the next 2 business days, please call them directly. as per [facility] ,office will call with you with appointment) Sophia Martínez FNP [Nurse Practitioner] - 7-10 days (We have notified your physician's clinic of the need for a follow-up appointment to be scheduled. If you have not heard from them within the next 2 business days, please call them directly. ) Patient Instructions: Metoprolol (By mouth), Furosemide (By mouth) (Lasix), Potassium Chloride (By mouth), Aspirin (By mouth), Atorvastatin (By mouth) (Lipitor, Atorvaliq), Clopidogrel (By mouth), Sacubitril/Valsartan (By mouth), Heart Attack (DC), Heart Healthy Diet (DC), Chest Pain Stoplight, Opioid Safety, Post Angiogram Home Care Instructions Activity Restrictions/Additional Instructions: Discussed with patient no heavy lifting more than a gallon of milk as well as going up or down steps for 3 days. No driving for 3 days. Monitor for and report signs or symptoms of bleeding. Monitor for and report s/s of infection such as fever 101 or greater, swelling, redness or pain to the groin. Plan of Treatment: Plan of treatment is for patient to continue dual antiplatelet therapy including aspirin and Plavix, he will need to keep this for 2 years, continue metoprolol succinate 12.5 mg daily Lasix 20 mg with 10 mill equivalents of potassium daily. He was instructed to weigh daily and if he gains 3 pounds in a day to take an extra dose of Lasix and potassium. He was instructed on a low-sodium diet less than 2 g. He will follow-up in 1 week. Echo should be done at 45 days. We will titrate to maximum tolerated goal-directed medical therapy. Patient denies signs or symptoms of stroke but states he is concerned about a buzzing noise in his head and requested carotid Doppler. Will get on an outpatient basis. This was ordered prior to discharge. Discharge Attestations Time Spent in Discharge Care*: greater than 30 min Quality Metrics Clinical Quality Measures [ No reported AMI, CVA or VTE this stay] Coding Level of Care Code Acute Code for [facility] Fwd Diagnoses ST elevation myocardial infarction involving left anterior descending (LAD) coronary artery I21.02 Involved coronary artery: LAD coronary artery Primary hypertension I10 Hypertension type: primary hypertension
== END 2024-09-05 14:03 | disposition home or self-care (01) | DRG 321 ==
LOC: ER 15:55 → CCL 15:59 → ICU 17:20
PROVIDERS: Emergency Medicine; Nurse Practitioner Family; Admitting Provider Internal Medicine Cardiovascular Disease; Emergency Provider Family Medicine; PCP Nurse Practitioner Family; Visit Provider Internal Medicine Cardiovascular Disease
PROC: 027034Z Dilation of Coronary Artery, One Artery with Drug-eluting Intraluminal Device, Percutaneous Approach (ICD-10-PCS; principal; 2024-09-02 16:00)
DX: I21.02 ST elevation (STEMI) myocardial infarction involving left anterior descending coronary artery (principal); I50.23 Acute on chronic systolic (congestive) heart failure; K21.9 Gastro-esophageal reflux disease without esophagitis; K59.00 Constipation, unspecified; I11.0 Hypertensive heart disease with heart failure; Z79.82 Long term (current) use of aspirin; Z79.02 Long term (current) use of antithrombotics/antiplatelets
CPT/HCPCS: 36415; 71045; 80048; 80053; 83690; 84484; 85025; 85347; 85610; 93005; 93306; 93458; 96374; 96375; 96376; 99152; 99153; 99285; C1725; C1760; C1769; C1874; C1887; C1894; C9600; G0269; J0282; J1644; J1940; J2250; J2270; J2405; J3010; J3490; J7030; J7050; Q9967

== ENCOUNTER → 2024-09-27 08:29 | Outpatient (BNVA) | payer MEDICARE, OTHER, SELFPAY | PROVIDERS: PCP Nurse Practitioner Family; Visit Provider Nurse Practitioner Family | DX: I11.0 Hypertensive heart disease with heart failure (principal); I50.21 Acute systolic (congestive) heart failure; I25.2 Old myocardial infarction; E78.5 Hyperlipidemia, unspecified | CPT/HCPCS: 36415; 80048; 80061; 83880; 99214 ==

== ENCOUNTER 2024-11-19 15:02 | Outpatient (CLI) | payer MEDICARE, OTHER, SELFPAY ==
--- NOTE | 2024-11-19 15:04 | USCV_ITS ---
Nam Padilla Age: 74 Gender: M : 1950 Exam Date: 11/19/2024 15:10 Ordering Phys: Marquita Martin NP Technologist: DAVID [place]am [facility] [facility] [place]ication: Bruit Risk Factors: Previous Vascular Surgery: Right Brachial BP: / Left Brachial BP: / Right Left Velocity (cm/s) Spectral Plaque Velocity (cm/s) Spectral Plaque Syst/Diast Broadening Syst/Diast Broadening 80.90/ 18.70 Prox CCA 95.60 / 18.70 104.80/28.40 Mid CCA 90.80 / 27.10 82.80/ 23.20 Distal CCA 78.90 / 23.30 33.50/ 10.80 Prox ICA 49.00 / 17.10 43.90/ 18.40 Mid ICA 47.10 / 19.30 42.50/ 16.70 Distal ICA 61.60 / 0.00 51.20 ECA 24.10 0.40 ICA/CCA 0.60 Antegrade Vertebral Antegrade 36.10/ 10.70 cm/s 28.60/ 10.30 cm/s Bi Subclavian Tri 59.30 57.40 CONCLUSIONS Right ICA stenosis <50%. Mild atheromatous plaque right carotid bulb/ICA. Left ICA stenosis <50%. Mild atheromatous plaque left carotid bulb/ICA. Intimal thickening in the common carotid arteries and internal carotid arteries bilaterally. Normal antegrade Doppler flow noted in the right vertebral artery. Normal antegrade Doppler flow noted in the left vertebral artery. Michael Malik MD (Electronically Signed) Final Date: 19 November 2024 15:55 S
== END 2024-11-19 15:03 | disposition home or self-care (01) ==
PROVIDERS: PCP Nurse Practitioner Family; Visit Provider Nurse Practitioner Family
DX: R09.89 Other specified symptoms and signs involving the circulatory and respiratory systems (principal); I65.23 Occlusion and stenosis of bilateral carotid arteries; R93.89 Abnormal findings on diagnostic imaging of other specified body structures
CPT/HCPCS: 93880

== ENCOUNTER → 2024-11-27 15:19 | Outpatient (BNVA) | payer MEDICARE, OTHER, SELFPAY | PROVIDERS: PCP Nurse Practitioner Family; Visit Provider Internal Medicine Cardiovascular Disease | DX: I11.0 Hypertensive heart disease with heart failure (principal); I50.21 Acute systolic (congestive) heart failure; I25.2 Old myocardial infarction; E78.5 Hyperlipidemia, unspecified | CPT/HCPCS: 99214 ==

== ENCOUNTER → 2024-12-25 10:21 | Outpatient (BNVA) | payer MEDICARE, OTHER, SELFPAY | PROVIDERS: PCP Nurse Practitioner Family; Visit Provider Nurse Practitioner Family | DX: I21.02 ST elevation (STEMI) myocardial infarction involving left anterior descending coronary artery (principal); I50.21 Acute systolic (congestive) heart failure; I87.2 Venous insufficiency (chronic) (peripheral) | CPT/HCPCS: 99214 ==

== ENCOUNTER 2025-01-29 13:32 | Outpatient (CLI) | payer MEDICARE, OTHER, SELFPAY ==
--- NOTE | 2025-01-29 13:30 | USCV_ITS ---
Nam Padilla Age: 74 Gender: M : 1950 Exam Date: 01/29/2025 14:09 Ordering Phys: Sophia Martínez Technologist: DAVID Exam Location: [facility] [place] Indication: LV Dysfunction BP: 140 / 50 HR: Rhythm: Sinus Technical Quality: Adequate MEASUREMENTS (Male / Female) Normal Values 2D ECHO LV Diastolic Diameter PLAX 5.1 cm 4.2 - 5.9 / 3.9 - 5.3 cm IVS Diastolic Thickness 1.2 cm 0.6 - 1.0 / 0.6 - 0.9 cm IVS Systolic Thickness 1.3 cm LVPW Diastolic Thickness 0.9 cm 0.6 - 1.0 / 0.6 - 0.9 cm LVPW Systolic Thickness 1.5 cm LVOT Diameter 1.9 cm LV Ejection Fraction 2D Teich 57.0 % LV Ejection Fraction MOD 4C 56.2 % LV Ejection Fraction MOD 2C 72.3 % LV Ejection Fraction 2C AL 72.0 % LA Diameter 3.7 cm RA Systolic Volume 4C AL 47.7 ml RA Systolic Volume 4C MOD 44.9 ml LA Sys Volume AL 47.2 cm cubed LA Sys Volume Index AL 22.0 cm cubed/m squared Aorta at Sinotubular Diameter 2.5 cm M-MODE LA Ao Ratio MM 1.4 AV Cusp Separation MM 1.7 cm FINDINGS Left Ventricle Normal left ventricular size and systolic function, EF 57%. Mild concentric left-ventricular hypertrophy. Right Ventricle The right ventricle is normal in size and function. Right Atrium The right atrium is normal in size. Left Atrium The left atrium is normal in size. Mitral Valve No gross abnormalities noted Aortic Valve Thickened aortic valve. Tricuspid Valve No gross abnormalities noted Pulmonic Valve Pulmonic valve not well visualized. Pericardium Normal pericardium without effusion. Aorta Normal ascending aorta dimension. IVC Inferior vena cava not visualized. CONCLUSIONS Normal left ventricular size and systolic function, EF 57%. Mild concentric left-ventricular hypertrophy. Thickened aortic valve. Normal cardiac chamber sizes. No intracardiac masses. No pericardial effusion Compared to the previous study from 09/03/2024, the LV ejection fraction has improved from 46% to 57% Dr Aleisha Aquino MD [facility] (Electronically Signed) Final Date: 02 Feb 2025 00:21 S
== END 2025-01-29 13:33 | disposition home or self-care (01) ==
LOC: RAD 13:35
PROVIDERS: PCP Nurse Practitioner Family; Visit Provider Nurse Practitioner Family
DX: I21.02 ST elevation (STEMI) myocardial infarction involving left anterior descending coronary artery (principal); I50.21 Acute systolic (congestive) heart failure; I51.7 Cardiomegaly; I35.8 Other nonrheumatic aortic valve disorders
CPT/HCPCS: 93308

== ENCOUNTER 2025-02-21 20:18 | Emergency (ER) | payer MEDICARE, OTHER, SELFPAY ==
[2025-02-21 20:29] VITALS: BP 124/75; PULSE 76; RESP 16; TEMP 36.7; O2SAT 95; BMI 26.4
[2025-02-21] MEDS: tetracaine 0.5% Op Soln 4 mL Btl 1 DROP EYE-RIGHT (23:20)
[2025-02-21] MEDS: fluorescein 1 mg Strip EYE-RIGHT (23:20)
[2025-02-21 23:53] VITALS: BP 127/79; PULSE 72; O2SAT 94
--- NOTE | 2025-02-22 05:45 | W.ED.EYEPROB ---
HPI - Eye Problem General: Chief complaint: Eye Problems Stated complaint: bleeding behind eye, stabbed eye accidentally Time Seen by Provider: 02/21/25 23:12 History of Present Illness: Patient is a well-appearing 74-year-old male seen for right IA pain. He states that several hours prior to arrival emergency department he was putting on some safety glasses when the glasses excellently struck him in the eye as he tried to put them on. Since then, he has had 3 of 10 pain which is worse with opening his eyes and better with rest. Vision is not obscured. noticed that his eye turned red prompting visit to emergency department. He has no other acute complaints. Related Data Previous Rx's ?Medication ?Instructions ?Recorded aspirin 81 mg tablet,delayed 81 mg PO DAILY 30 days #90 tabs 09/05/24 release ticagrelor 90 mg tablet (Brilinta) 90 mg PO BID #60 tabs 09/13/24 furosemide 20 mg tablet (Lasix) 20 mg PO DAILY PRN edema #30 tabs 09/27/24 potassium chloride 10 mEq 10 meq PO DAILY PRN with Lasix #30 09/27/24 tablet,extended release tabs lisinopril 5 mg tablet 5 mg PO DAILY #90 tabs 12/18/24 amlodipine 5 mg tablet 5 mg PO BID #180 tabs 12/25/24 [id number] 3.5 1 drp ophthalmic (eye) Q8H #5 mL 02/21/25 mg/mL-10,000 unit/mL-0.1% eye drops (Maxitrol) Allergies Allergy/AdvReac Type Severity Reaction Status Date / Time citalopram (From Celexa) Allergy ADR-Dry Verified 12/25/24 10:28 Mucus Membranes [facility] ED PFSH: Medical History ST elevation (STEMI) myocardial infarction ST elevation myocardial infarction (STEMI) Lipoma Manson tick fever Constipation Hemorrhoids Surgical History Hx of colonoscopy Hx of appendectomy Hx of exploratory laparotomy Family History Denies family history of Clotting disorder Anesthesia complication Bleeding disorder Social History Smoking and tobacco/nicotine status: never used tobacco/nicotine Second hand smoke exposure: No Lives independently: Yes Household members: significant other Marital status: Life Partner Physical Exam Const: COMMON NORMALS: no acute distress, patient oriented x3 and alert HENMT: COMMON NORMALS: normocephalic and atraumatic HEAD & SCALP: normocephalic and atraumatic Eye: OTHER: Left eye is normal. Right eye exhibits significant some conjunctival hemorrhage. On fluorescein exam, there is no uptake to imply corneal abrasion or rupture. Vision is intact and at baseline. There is no other evidence of infection or increased tearing or other abnormality Resp: COMMON NORMALS: normal respiratory effort and No retractions Cardio: COMMON NORMALS: regular rate, regular rhythm and No murmurs present (Cardio) RATE: regular rate RHYTHM: regular rhythm GI: COMMON NORMALS: Normal to inspection, nondistended, normoactive bowel sounds present, Soft to palpation and non-tender PALPATION: Yes Soft to palpation Neuro: COMMON NORMALS: patient oriented x3 SENSORIUM/ORIENTATION: Yes alert Skin: COMMON NORMALS: no rashes or lesions noted GENERAL SKIN EXAM: no rashes or lesions noted Course Vital Signs: Vital signs: Vital Signs Temperature 98.1 F 02/21/25 20:29 Pulse Rate 72 02/21/25 23:53 Respiratory Rate 16 02/21/25 20:29 Blood Pressure 127/79 02/21/25 23:53 Pulse Oximetry 94 02/21/25 23:53 Oxygen Delivery Me thod Room Air 02/21/25 20:29 MDM - Eye Problem Medical Decision Making In summary, patient appears to have struck his eye accidentally causing a subconjunctival hemorrhage. There is no evidence of corneal abrasion or other abnormality requiring further workup. He will be given a short course of antibiotic drops and discharged in stable condition follow-up ophthalmology as needed. No radiology studies performed this visit Discharge Plan Discharge Patient Disposition: Home Clinical Impression: Subconjunctival bleed Condition: Stable Prescriptions: New neomycin-polymyxin B-dexameth [Maxitrol] 3.5mg/mL-10,000 unit/mL-0.1 % drops,suspension 1 drp ophthalmic (eye) Q8H Qty: 5 0RF No Action potassium chloride 10 mEq tablet extended release 10 meq PO DAILY PRN (Reason: with Lasix) Qty: 30 6RF furosemide [Lasix] 20 mg tablet 20 mg PO DAILY PRN (Reason: edema) Qty: 30 6RF amlodipine 5 mg tablet 5 mg PO BID Qty: 180 3RF Brilinta 90 mg tablet 90 mg PO BID Qty: 60 6RF lisinopril 5 mg tablet 5 mg PO DAILY Qty: 90 3RF aspirin 81 mg Tablet,Delayed Release (Dr/Ec) 81 mg PO DAILY 30 Days Qty: 90 3RF Discharge Orders: Discharge ED (Routine); Ordered 02/21/25 Ordered By: Hal Lyle Referrals: Radha Fox FNP [Primary Care Provider, Family Practice] Patient Instructions: Subconjunctival Hemorrhage Print Language: [place] Coding Level of Care Code ED Legal Financial Specialist for Mariel York
== END 2025-02-21 23:54 | disposition home or self-care (01) ==
PROVIDERS: Emergency Provider Student in an Organized Health Care Education/Training Program; PCP Nurse Practitioner Family
DX: H11.31 Conjunctival hemorrhage, right eye (principal); Z79.82 Long term (current) use of aspirin
CPT/HCPCS: 99283; J9999

== ENCOUNTER → 2025-03-26 14:09 | Outpatient (BNVA) | payer MEDICARE, OTHER, SELFPAY | PROVIDERS: PCP Nurse Practitioner Family; Visit Provider Internal Medicine Cardiovascular Disease | DX: I50.20 Unspecified systolic (congestive) heart failure (principal); I25.5 Ischemic cardiomyopathy; F41.9 Anxiety disorder, unspecified | CPT/HCPCS: 99214 ==